=== PATIENT | female | born 1955 | race Caucasian/White ===

== ENCOUNTER 2018-08-26 00:40 | Outpatient (CLI) | payer MEDICAID, SELFPAY ==
--- NOTE | 2018-08-26 09:00 | DI.MAMMO_ITS ---
SYMPTOM/DIAGNOSIS: SCREENING, Z12.31 MAMMOGRAMS: Mammograms were interpreted according to the usual protocol including computer analysis with CAD system, tomosynthesis and C view imaging. Comparison with prior examinations. Breast density B. No masses or microcalcifications are seen. There is nothing to suggest malignancy. IMPRESSION: Negative mammogram. Routine screening is recommended. Category 1 , B. MQSA ASSESSMENT OF FINDINGS: Negative. Category 1. Patient will receive a letter notifying them of these results. BI-RADS category B. There are scattered areas of fibroglandular density.
== END 2018-08-26 01:00 ==
PROVIDERS: PCP Family Medicine; Visit Provider Family Medicine
DX: Z12.31 Encounter for screening mammogram for malignant neoplasm of breast (principal)
CPT/HCPCS: 77063; 77067

== ENCOUNTER 2019-07-01 12:39 | Emergency (ER) | payer OTHER, SELFPAY ==
[2019-07-01 12:44] VITALS: BP 144/79; PULSE 99; RESP 16; TEMP 36.8; O2SAT 97
--- NOTE | 2019-07-01 13:05 | W.ED.GENAD ---
Discharge Plan Disposition Patient Disposition: HOME Condition: Stable Discharge Details Chief Complaint: GenMedical Clinical Impression: Paresthesia Primary Care Provider: Lynsey Moy ED Provider: Tad Cooper Home Meds and New Rx's Prescriptions: No Action levothyroxine 75 mcg tablet 75 mcg PO DAILY Qty: 90 RF: 4 TheraTears 1 EACH dropperette,gel 1 drp OU 4-6x/day RF: 0 Preparation H Maximum Strength 51 GM cream 1 applic RC PRN RF: 0 Discharge Instructions Additional Instructions: Your lab work and exam did not show any concerning findings follow up with your primary care provider within 1-2 weeks if you have weakness, difficulty breathing, chest pain/pressure, vision changes, trouble speaking or feel more ill return to the emergency department Medical Decision Making 63 yo female with hx of hypothyroidism who comes in with chief complaint of feeling off and feeling some sensation of feeling lightheaded. Denies loc, chest pain, sob, weakness, fevers, chills, abdominal pain or n/v. She also notes subjective numbness of her lips and hands. She has an NIH of 0, stable gait, no focal neuro deficits and symptoms do not seem consistent with tia/cva. No chest pain or pressure or sob so doubt acs/pe, no hypoxia/tachycardia or evidence of dvt so doubt PE. I suspect she could have some anxiety related to her son's very recent cancer diagnosis that she brings up herself and states it has affected her significantly. Will check for anemia and electrolyte abnormalities and monitor pt remains stable, ambulating with normal gait unassisted, labs show no significant abnormalities. ASymptomatic now so feel she is safe for d/c and advised f/u with pcp and return precautions given Differential Diagnosis anemia, dehydration, electrolyte abnormalities Lab Data Lab results reviewed: Yes I reviewed the patient's lab results. ECG Data Attestation: I personally reviewed and interpreted this ECG (s) as follows: Prior ECG tracings: not available for review Interpretation: sinus rhythm, rate of 82, pr 152, no acute st t wave ischemic findings HPI General Mode of arrival: ambulatory. Date/Time Provider Initiated Documentation: 07/01/19 12:39. Limitations to Documentation: no limitations. Information obtained by: patient. History of Present Illness 63 year old F presents to the emergency department with the chief complaint of lighteaded, described as moderate, Patient started experiencing this day(s) (1) and it has been intermittent. No relieving factors improve symptom(s), No exacerbating factors reported . Patient did receive the following treatments prior to arrival, none Related Data Home Medications Medication Instructions Recorded Confirmed carboxymethylcellulose sodium 1 drp OU 4-6x/day 04/28/13 07/01/19 [Thera Tears] [id number]-w.pet 1 applic RC PRN 02/11/17 07/01/19 [Preparation H Cream] levothyroxine 75 mcg tablet 75 mcg PO DAILY #90 tab 12/01/18 07/01/19 Previous Rx's Medication Instructions Recorded levothyroxine 75 mcg tablet 75 mcg PO DAILY #90 tab 12/01/18 Allergies Allergy/AdvReac Type Severity Reaction Status Date / Time fentanyl AdvReac Severe SEVERE Verified 07/01/19 12:48 POST OP NAUSEA & VOMITING hydrocortisone AdvReac Severe BURNING Verified 07/01/19 12:48 [From Hydrocortone] midazolam HCl [From Versed] AdvReac Severe SEVERE Verified 07/01/19 12:48 POST OP NAUSEA & VOMITING Anesthetics - Amide Type AdvReac N/V Verified 07/01/19 12:48 Tetracyclines AdvReac Vomiting/Di Verified 07/01/19 12:48 zziness General Stated Complaint: GenMedical LUDMILA: 3 Review of Systems Review of Systems All systems reviewed & are unremarkable except as noted in HPI and below Constitutional Denies chills and Denies fever(s) ENT Denies change in voice Cardiovascular Denies chest pain and Denies dyspnea Respiratory Denies dyspnea Gastrointestinal Denies abdominal pain, Denies nausea and Denies vomiting Allergic/Immunologic Denies urticaria [facility] [place] Medical History (Updated 12/16/18 @ 11:31 by Nirmala Carrera) Cervicalgia (Chronic 01/16/18) Depressive disorder (Resolved) Fall (Resolved 01/16/18) Gastroesophageal reflux disease (Chronic 11/05/13) GERD (gastroesophageal reflux disease) Hearing loss (Chronic) History of recent stressful life event (Resolved 08/09/15) Hyperlipidemia (Chronic) Hypothyroidism Hypothyroidism (Chronic 05/29/11) Irritable colon (Resolved) Low back pain (Chronic 10/28/12) Microscopic hematuria (Resolved 07/30/15) Micturition syncope (Resolved 01/16/18) Midline thoracic back pain (Chronic 01/02/16) Right hip pain (Chronic 02/27/18) Sebaceous cyst of skin of right breast (Resolved 07/07/15) Tubular adenoma of colon (Chronic 11/15/15) Surgical History (Updated 12/16/18 @ 11:31 by Nirmala Carrera) Biopsy of breast (~07/2010) Colonoscopy - MAC (~06/2011) Colonoscopy - MAC (07/24/16) H/O tubal ligation (Resolved) Ligation of fallopian tube S/P breast biopsy (Resolved) Social History (Updated 12/04/18 @ 10:59 by Lynsey Leung) Smoking/Tobacco Use Status: Never Second Hand Exposure: Yes Alcohol Intake: never Drug use: Never Substance use type: does not use Caregiver/Support person: No Household members: none Housing: house Pets and animals: Yes Pets and animals: dog(s) Sexually active: No What is your relationship status?: How often do you talk on the phone with friends or family?: decline to answer How often do you get together with friends or relatives?: decline to answer How often do you attend congregation or scientology services?: decline to answer Do you belong to any clubs or organized social groups?: decline to answer Panel score (0-1 are the most socially isolated patients): 0 What type of physical activity do you participate in: walking and other Details: MOW, SHOVEL SNOW Milena/Buddhism: None Special milena needs: No Exam Const General: no acute distress Orientation: alert HENMT Head: normal to inspection Ears: external ears normal General nose exam: external nose normal Mouth: moist mucous membranes Eyes General: appearance normal, both eyes and all related structures Neck Neck: normal visual inspection Resp Effort & Inspection: normal respiratory effort and able to speak in complete sentences Cardio Rate: regular rate Skin General skin exam: no rashes or lesions noted Neuro General: alert and oriented x3 Extrem General: normal to inspection Psych Mental Status: mental status grossly normal Course Vital Signs Temperature 36.8 C 07/01/19 12:44 Pulse 99 H 07/01/19 12:44 Respiratory Rate 16 07/01/19 12:44 Blood Pressure 144/79 H 07/01/19 12:44 Pulse Oximetry 97 07/01/19 12:44 Temperature 36.8 C 07/01/19 12:44 Temperature Source Skin 07/01/19 12:44 Pulse 99 H 07/01/19 12:44 Respiratory Rate 16 07/01/19 12:44 Respiratory Effort Non-Labored 07/01/19 12:44 Blood Pressure 144/79 H 07/01/19 12:44 Blood Pressure Position Sitting 07/01/19 12:44 Pulse Oximetry 97 07/01/19 12:44 Oxygen Delivery Method Room Air 07/01/19 12:44 Oxygen Flow Rate 0 07/01/19 12:44
[2019-07-01 13:17] VITALS: RESP 16
[2019-07-01 13:17] LABS: Absolute Basophil Count 0.02 k/cumm (0.0-0.2); Absolute Eosinophil Count 0.05 k/cumm (0.0-0.7); Absolute Lymphocyte Count 0.82 k/cumm (1.2-3.4); Absolute Monocyte Count 0.25 k/cumm (0.11-0.7); Absolute Neutrophil Count 1.97 k/cumm (1.2-6.7); Basophils % 0.6; Eosinophils % 1.6; HCT 40.7 % (36.0-46.0); HGB 13.7 g/dL (12.0-15.5); Lymphocytes % 26.4; Mean Corp. HGB Concentration 33.7 g/dL (32.0-36.0); Mean Corpuscular Hemoglobin 30.9 pg (27.0-33.0); Mean Corpuscular Volume 91.9 fL (80-95); Mean Platelet Volume 10.4 fL (8.0-11.0); Neutrophils % 63.4; Platelet Count 257 x1000/uL (130-400); RBC 4.43 m/cumm (4.00-5.20); RBC Distribution Width 13.2 % (11.7-14.6); White Blood Cell Count 3.11 k/cumm (4.4-10.8)
[2019-07-01 14:48] LABS: ALT 12 U/L (12-78); AST 18 U/L (15-37); Albumin 4.1 g/dL (3.4-5.0); Alkaline Phosphatase 70 U/L (46-116); BUN 12 mg/dL (7-18); Bilirubin, Total 0.4 mg/dL (0.2-1.0); Calcium 9.6 mg/dL (8.5-10.1); Chloride 97 mmol/L (98-107); Glucose 105 mg/dL (70-100); NT-proBNP 148 pg/mL; Potassium 3.8 mmol/L (3.5-5.1); Sodium 134 mmol/L (136-145); Total Protein 7.6 g/dL (6.4-8.2)
[2019-07-01 14:50] LABS: Troponin I < 0.05 ng/mL (0.00-0.06)
== END 2019-07-01 15:10 | disposition home or self-care (01) ==
PROVIDERS: Emergency Provider Emergency Medicine; PCP Family Medicine
DX: R20.2 Paresthesia of skin (principal); E03.9 Hypothyroidism, unspecified; Z63.79 Other stressful life events affecting family and household
CPT/HCPCS: 80053; 93005; 99283; 83735; 83880; 84484; 85025; 93010

== ENCOUNTER 2019-07-09 01:32 | Outpatient (CLI) | payer OTHER, SELFPAY ==
--- NOTE | 2019-07-09 07:35 | DI.US_ITS ---
SYMPTOM/DIAGNOSIS: ABNL WT LOSS, R63.4 ABDOMINAL ULTRASOUND: 07/09/19 The visualized liver parenchyma is normal in appearance. There is no evidence of cholelithiasis. The common bile duct is of normal diameter. The pancreas and spleen appear intact. No renal abnormality is seen. The abdominal aorta is of normal diameter. Normal appearance of IVC. CONCLUSION: Normal abdominal ultrasound.
== END 2019-07-09 01:52 ==
PROVIDERS: PCP Family Medicine; Visit Provider Family Medicine
DX: R63.4 Abnormal weight loss (principal)
CPT/HCPCS: 76700

== ENCOUNTER 2019-07-09 02:22 | Outpatient (CLI) | payer OTHER, SELFPAY ==
--- NOTE | 2019-07-14 14:32 | HOLTER_ITS ---
DATE OF DICTATION: July 14, 2019 DATE OF REPORT: July 14, 2019 STUDY INDICATIONS: Palpitations. REQUESTING PROVIDER: Not available. FINDINGS: The patient was monitored for 1 day and 23 hours. Baseline sinus rhythm. Average heart rate 83 bpm, range 59-135 bpm. Rare ectopy. No PVC's. Three PAC's. No pauses greater than 3 seconds. No high-degree heart block. No patient events. FINAL INTERPRETATION: Normal study.
== END 2019-07-09 02:42 ==
PROVIDERS: PCP Family Medicine; Visit Provider Family Medicine
DX: R00.2 Palpitations (principal)
CPT/HCPCS: 93225

== ENCOUNTER 2019-07-13 01:29 | Outpatient (CLI) | payer OTHER, SELFPAY ==
[2019-07-13 11:46] LABS: Hemoglobin A1C 5.4 % (4.5-6.2)
[2019-07-13 11:57] LABS: ALT 19 U/L (12-78); AST 18 U/L (15-37); Albumin 4.3 g/dL (3.4-5.0); Alkaline Phosphatase 74 U/L (46-116); Anion Gap 9.2 mmol/L (3-11); BUN 14 mg/dL (7-18); Bilirubin, Total 0.4 mg/dL (0.2-1.0); CO2 28.8 mmol/L (21.0-32.0); CREATININE 0.89 mg/dL (0.55-1.02); Calcium 9.6 mg/dL (8.5-10.1); Chloride 102 mmol/L (98-107); Glucose 92 mg/dL (70-100); Sodium 140 mmol/L (136-145); TSH (W/Ref FT4) 5.48 uIU/mL (0.36-3.74); Total Protein 7.5 g/dL (6.4-8.2)
[2019-07-13 11:58] LABS: C-Reactive Protein < 0.05 mg/dL (0.0-0.3)
[2019-07-13 12:09] LABS: Calculated LDL 159 mg/dL; Cholesterol 247 mg/dL (50-200); HDL Cholesterol 73 mg/dL (40-60); Triglyceride 75 mg/dL (30-150)
[2019-07-13 12:25] LABS: FREE T4 1.28 ng/dL (0.76-1.46)
[2019-07-13 13:20] LABS: ESR 9 mm/hr (0-30)
[2019-07-14 09:08] LABS: Cyclic Citrullinated Peptide <2.5 U/mL (<5.0)
== END 2019-07-13 01:49 ==
PROVIDERS: PCP Family Medicine
DX: R63.4 Abnormal weight loss (principal); R35.8 Other polyuria; M25.50 Pain in unspecified joint
CPT/HCPCS: 36415; 80053; 80061; 83721; 85652; 86200; 83036; 84439; 84443; 86140

== ENCOUNTER 2019-07-13 16:24 | Outpatient (CLI) | payer OTHER, SELFPAY | END 2019-07-13 16:44 | PROVIDERS: PCP Family Medicine; Visit Provider Family Medicine | DX: R00.2 Palpitations (principal) | CPT/HCPCS: 93226 ==

== ENCOUNTER 2019-09-24 00:56 | Outpatient (CLI) | payer OTHER, SELFPAY ==
--- NOTE | 2019-09-24 10:30 | DI.MAMMO_ITS ---
EXAM: MAMMO SCREENING CLINICAL HISTORY: breast cancer screening,z12.31 TECHNIQUE: Mammograms were interpreted according to the usual protocol including computer analysis w [employer] CAD system, tomosynthesis and C-view imaging. FINDINGS: The breasts are of moderate density with fairly symmetrical distribution of fibroglandular tissue. N o dominant mass or clumped microcalcification is identified in either breast. Current examination is compared with previous examinations including August 2018 and there is question of increased prom inence of areas of asymmetric density located laterally in the right breast on CC view and superiorly in the right breast on MLO view. Additional mammographic views are requested to include CC and MLO spot compression views of the right breast. IMPRESSION: Additional mammographic views of the right breast requested as described above. Breast ultrasound may be indicated as well depending on the results of the additional mammographic views. Ca tegory 0. Breast density, category B. BI-RADS Cat 0 - Assessment Incomplete: Need additional imaging evaluation. Breast Density - Category B - Scattered areas of fibroglandular density.
== END 2019-09-24 01:16 ==
PROVIDERS: PCP Family Medicine
DX: R92.8 Other abnormal and inconclusive findings on diagnostic imaging of breast
CPT/HCPCS: 77063; 77067

== ENCOUNTER 2019-09-30 01:16 | Outpatient (CLI) | payer OTHER, SELFPAY ==
--- NOTE | 2019-09-30 10:00 | DI.US_ITS ---
EXAM: Right mammogram callback and right breast ultrasound CLINICAL HISTORY: QUESTION OF INCREASED PROMINENCE OF AREA ASYMMETRIC DENSITY LOCATED LAT ON RT MITCH ST TECHNIQUE: Ultrasound performed using standard protocol. COMPARISON: Available for comparison FINDINGS: Right mammogram callback No suspicious masses or microcalcifications persist. Breast Density - Category B - Scattered areas of fibroglandular density Right breast ultrasound. The upper outer quadrant of the right breast was evaluated sonographically. No cystic or solid yuval s are seen sonographically. IMPRESSION: 1. No evidence for malignancy. A 6 month follow-up right mammogram is requested for re-evaluation. 2. BI-RADS Cat 3 - 6 month - Probably Benign Finding: Recommend follow-up mammography in 6 months 3. Breast Density - Category B - Scattered areas of fibroglandular density 4. The findings were discussed with the patient on the date of the examination. BI-RADS Cat 3 - 6 month - Probably Benign Finding: Recommend follow-up mammography in 6 months. Breast Density - Category B - Scattered areas of fibroglandular density.
== END 2019-09-30 01:36 ==
PROVIDERS: PCP Family Medicine
DX: Z12.31 Encounter for screening mammogram for malignant neoplasm of breast (principal); R92.8 Other abnormal and inconclusive findings on diagnostic imaging of breast; N64.59 Other signs and symptoms in breast
CPT/HCPCS: 76642; 77063; 77067

== ENCOUNTER 2019-11-10 12:24 | Outpatient (CLI) | payer MEDICARE, SELFPAY ==
--- NOTE | 2019-11-10 12:27 | DI.RAD_ITS ---
EXAM: XR CERVICAL SPINE COMP 4-5V INDICATION: neck pain, CERVICALGIA-M54.2. COMPARISON: 2012 TECHNIQUE: 2D digital imaging was performed. FINDINGS: Comparison is made with 2012. There is moderate narrowing of the C 4-5 and C5-6 disc spaces which al so show endplate osteophyte formation. There are facet degenerative changes. Neural foraminal narro wing is seen on the right at C4-5 and C5-6. There is mild neural foraminal narrowing on the left at C5-6. The airway is unremarkable. IMPRESSION: Degenerative changes at C4-5 and C5-6.
== END 2019-11-10 12:44 ==
PROVIDERS: PCP Family Medicine; Visit Provider Family Medicine
DX: M54.2 Cervicalgia (principal); M50.321 Other cervical disc degeneration at C4-C5 level; M50.322 Other cervical disc degeneration at C5-C6 level
CPT/HCPCS: 72050

== ENCOUNTER 2019-11-11 01:19 | Outpatient (CLI) | payer MEDICARE, SELFPAY ==
--- NOTE | 2019-11-11 12:41 | DI.US_ITS ---
EXAM: US THYROID CLINICAL HISTORY: left thyroid nodule R63.4 ABNORMAL WEIGHT LOSS, E04.1 NODULE TECHNIQUE: Ultrasound performed using standard protocol. FINDINGS: The right lobe measures 4.2 x 0.7 x 0.8 centimeters. There is normal blood flow. No cystic or solid masses identified. The left lobe measures 3 x 0.9 x 1.0 centimeters. There is normal blood flow. There is a complex 1. 9 x 0.8 x 1.0 centimeter vascular nodule in the left lobe of the thyroid gland. No internal echogeni c shadowing foci are identified. In the left neck, there is a hypoechoic 2.3 x 0.5 x 0.8 centimeter nodule adjacent to the carotid ves sels. This may represent a lymph node. IMPRESSION: 1.9 x 0.8 x 1.0 centimeter complex vascular left thyroid mass. Biopsy should be considered for furth er evaluation.
== END 2019-11-11 01:39 ==
PROVIDERS: PCP Family Medicine; Visit Provider Family Medicine
DX: E04.1 Nontoxic single thyroid nodule (principal); E07.89 Other specified disorders of thyroid
CPT/HCPCS: 76536

== ENCOUNTER 2019-12-04 02:55 | Outpatient (CLI) | payer MEDICARE, SELFPAY ==
--- NOTE | 2019-12-04 13:55 | DI.US_ITS ---
APPROVED REPORT EXAM: Comprehensive 2D, Doppler, and color-flow Echocardiogram Patient Location: Out-Patient Microwave Supervisor: Kinsey Reaves RDCS (AE) Rhythm: NSR Indications: SOB palpitations. R00.2, R06.02 Conclusion Left Ventricle : The left ventricle is small. Left ventricular systolic function is normal. The poste rior wall thickness is normal. The septum is normal. There is normal LV segmental wall motion. The le ft ventricular diastolic function is normal. LVEF is estimated to be 60-65%. Right Ventricle : The right ventricle appears normal size. The right ventricular systolic function ap pears normal. Atria : The left atrium size is normal. The right atrium size is normal. Aortic Valve : Aortic valve is trileaflet. Mild aortic regurgitation by color flow doppler. There is no aortic valvular stenosis. Mitral Valve : Mitral valve leaflets are mildly thickened. Trace mitral regurgitation. No evidence of mitral valve stenosis. Tricuspid Valve : The tricuspid valve is normal in structure. Mild tricuspid regurgitation. Great Vessels : The aortic root is normal in size. The aortic root size is normal. The IVC is dilated , but collapses >50%. Estimated RVSP is 26-34 mmHg. There is no prior echocardiogram available for comparison. Wall motion Left Ventricle The left ventricle is small. Left ventricular systolic function is normal. The posterior wall thickne ss is normal. The septum is normal. There is normal LV segmental wall motion. The left ventricular di astolic function is normal. LVEF is estimated to be 60-65%. Right Ventricle The right ventricle appears normal size. The right ventricular systolic function appears normal. Atria The left atrium size is normal. The right atrium size is normal. Aortic Valve Aortic valve is trileaflet. There is no aortic valvular stenosis. Mild aortic regurgitation by color flow doppler. Mitral Valve Mitral valve leaflets are mildly thickened. No evidence of mitral valve stenosis. Trace mitral regurg itation. Tricuspid Valve The tricuspid valve is normal in structure. Mild tricuspid regurgitation. Pulmonic Valve Pulmonic valve is not well visualized. Great Vessels The aortic root is normal in size. The aortic root size is normal. The IVC is dilated, but collapses >50%. Estimated RVSP is 26-34 mmHg. Pericardium No pericardial effusion. 2D Dimensions IVSd 0.80 cm F: 0.6-1.0 LV EDV A2C 47.80 mL PWd 0.80 cm F: 0.6 - 1.0 LV EDV A4C 70.40 mL LVDd 3.65 cm F: 3.8 - 5.2 LA Volume Index A2C 13.61 mL/m2 LVDs 2.35 cm F: 2.2 - 3.5 LA Volume Index A4C 21.59 mL/m2 Aortic Root 2.80 cm F: 2.7 - 3.3 LA Volume Index Biplane 17.86 mL/m2 RA Area A4C 9.71 cm2 LA Area A4C 12.89 cm2 LVOT 2.15 cm (M/F) 1.5-2.5 LA Area A2C 10.67 cm2 LVEF (Teich) 65.26 % EF AP4 72.59 % LVEF (Ratliff's) 73.00 % F: 54 - 74 EF AP2 74.69 % LV Volume 48.70 mL F: 46 - 106 EF BP 73.00 % LV Volume Index 30.62 mL/m2 F: 29 - 61 FS 35.05 % LV Diastology E/A Ratio 1.3 MED E' 0.11 (>0.07 m/s) LV E/e MED 7.25 (<14) LAT E' 0.12 (>0.1 m/s) LV E/e LAT 6.45 (<14) Aortic Valve LVOT Area 3.66 cm2 LVOT Vmax 1.38 m/s LVOT Mean Rao. 0.80 m/s LVOT Peak Gr. 7.6 mmHg LVOT Mean Gr. 3.2 mmHg AoV Area/ BSA (Vmax) 1.97 cm2/m2 LVOT VTI 0.267 m AoV Vmax 1.61 (0.5-1.3 m/s) SOCO Mean Rao. Index 1.63 cm2/m2 AoV Mean Rao. 1.13 m/s AoV Peak Grad 10.4 mmHg AoV Mean Grad 5.8 (<5 mmHg) AoV VTI 0.316 (0.18-0.25 m) AoV Area VTI 3.20 (2.5-4.5 cm2) AoV Area/ BSA (VTI) 2.01 cm/m2 Mitral Valve MV E Max Rao. 0.80 (0.4-1.3 m/s) MV A Velocity 0.60 (0.4-1.3 m/s) E/A Ratio 1.31 MV Decel. Time 188.85 (160-240 msec) MV PHT 54.78 msec MVA PHT 4.00 cm2 Pulmonary Valve PV Peak Velocity 0.98 (0.5-1.5 m/s) Tricuspid Valve TR P. Velocity 2.56 m/s TV Regurg Vmax 2.56 m/s RAP Estimate 8.00 mmHg RVSP 34.18 mmHg TR P. Gradient 26.15 mmHg
== END 2019-12-04 03:15 ==
PROVIDERS: PCP Family Medicine; Visit Provider Family Medicine
DX: R00.2 Palpitations (principal); R06.02 Shortness of breath; I34.8 Other nonrheumatic mitral valve disorders
CPT/HCPCS: 93306

== ENCOUNTER 2020-03-21 01:53 | Outpatient (CLI) | payer MEDICARE, SELFPAY ==
--- NOTE | 2020-03-21 10:26 | DI.MAMMO_ITS ---
EXAM: MG MAMMO DIAGNOSTIC UNI CLINICAL HISTORY: 6 MO F/U TO ABNORMAL MAMMO,r93.8,z09 TECHNIQUE: Mammograms were interpreted according to the usual protocol including computer analysis w [employer] CAD system, tomosynthesis and C-view imaging. FINDINGS: Today's examination of the right breast was obtained to follow previously described area of asymmetri c density of the right breast seen on prior mammogram of September 2019. The area of asymmetric density is less prominent on the current examination. No new mass or clumped microcalcification seen. IMPRESSION: No specific evidence of malignancy at this time. Follow-up mammogram recommended in 6 months, which should be bilateral mammogram to resume routine yearly screening. Categor BI-RADS Cat 3 - 6 month - Probably Benign Finding: Recommend follow-up mammography in 6 month s Breast Density - Category B - Scattered areas of fibroglandular densityy Density
== END 2020-03-21 02:13 ==
PROVIDERS: PCP Family Medicine
DX: Z12.31 Encounter for screening mammogram for malignant neoplasm of breast (principal); R92.8 Other abnormal and inconclusive findings on diagnostic imaging of breast; N64.59 Other signs and symptoms in breast
CPT/HCPCS: 77061; 77065; G0279

== ENCOUNTER 2020-06-02 10:40 | Emergency (ER) | payer MEDICARE, SELFPAY ==
[2020-06-02 10:43] VITALS: BP 146/77; PULSE 98; RESP 16; TEMP 36.7; O2SAT 100
--- NOTE | 2020-06-02 10:45 | DI.RAD_ITS ---
EXAM: XR LUMBAR SPINE COMPLETE CLINICAL HISTORY: Low back pain. TECHNIQUE: 2D digital imaging was performed. COMPARISON: No exams were available for comparison FINDINGS: There are 5 lumbar type vertebral bodies. There is normal alignment. No spondylolysis or spondyloli sthesis is seen. No acute fractures or subluxations are present. Mild degenerative changes are seen in the lumbar spine characterized by disc space narrowing, endplate osteophytes and facet arthropath y. The soft tissues are unremarkable. There is a large amount of stool seen throughout the colon. IMPRESSION: 1. No acute abnormality in the lumbar spine. 2. Mild degenerative changes in the lumbar spine. 3. Constipation. DATA REPOSITORY: RADIATION DOSE DELIVERED:
--- NOTE | 2020-06-02 10:56 | ED.GENADUL_ITS ---
Discharge Plan Disposition Patient Disposition: HOME Condition: Stable Discharge Details Chief Complaint: Nk/Back Pain Clinical Impression: Lumbago without sciatica Primary Care Provider: Lynsey Moy ED Provider: Janay Barnhart Home Meds and New Rx's Prescriptions: New cyclobenzaprine 10 mg tablet 10 mg PO TID PRN (Reason: muscle spasm) Qty: 7 RF: 0 lidocaine 5 % adhesive patch,medicated 1 patch TP DAILY PRN (Reason: muscle spasm) Qty: 15 RF: 0 No Action TheraTears 1 EACH dropperette,gel 1 drp OU 4-6x/day RF: 0 Preparation H Maximum Strength 51 GM cream 1 applic RC PRN RF: 0 levothyroxine 75 mcg tablet 75 mcg PO DAILY Qty: 90 RF: 4 Discharge Instructions Instructions: Low Back Strain (ED) Additional Instructions: Follow up with primary care provider in 3-5 days. Return to ED sooner if any worsening or concerns. Increase oral fluids. Please take Tylenol or Ibuprofen with food every 4-6 hours as needed for pain and swelling. Take medications as prescribed the Flexeril may cause sedation. Do not use more than 1 lidocaine patch a day. Return for any worsening pain, incontinence of bowel or bladder, numbness or tingling around your groin or rectal area any weakness in your legs. Referrals: Lynsey Moy [place], [place] [Primary Care Provider] - Discharge Data Discharge Date/Time-TO BE ENTERED AT DEPARTURE: 06/02/20 12:14 Medical Decision Making 64-year-old female presents to the ER via EMS for lower back spasm which began at around 5 this morning. Patient states that she does have back problems and does get adjusted periodically by Dr. Moy her PCP. She states that it 5 this morning she got out of bed and her right lower back began spasming. She describes the pain as intermittent spasm worse with certain movements and walking. She denies any saddle anesthesia, loss of bowel or bladder control, numbness tingling in her legs, no history of back surgeries. Patient was given IV Tylenol prior to arrival by EMS. This is somewhat and started to improve her symptoms. She denies trauma. 11:00: At this time lumbar x-rays ordered, Flexeril 10 mg p.o. ordered, urinalysis ordered to rule out blood or infection which could be the cause of her back pain. 1137: Urinalysis shows moderate blood, 25-50 RBCs which patient has had at baseline back in 2015. Patient does also endorse that she is always had blood in her urine. Flexeril is beginning to improve symptoms, lidocaine transdermal patch ordered. X-ray results are pending at this time. EXAM: XR LUMBAR SPINE COMPLETE CLINICAL HISTORY: Low back pain. TECHNIQUE: 2D digital imaging was performed. COMPARISON: No exams were available for comparison FINDINGS: There are 5 lumbar type vertebral bodies. There is normal alignment. No spondylolysis or spondylolisthesis is seen. No acute fractures or subluxations are present. Mild degenerative changes are seen in the lumbar spine characterized by disc space narrowing, endplate osteophytes and facet arthropathy. The soft tissues are unremarkable. There is a large amount of stool seen throughout the colon. IMPRESSION: 1. No acute abnormality in the lumbar spine. 2. Mild degenerative changes in the lumbar spine. 3. Constipation. Plan is to have patient follow-up with primary care provider. She has no red flags for additional imaging. No evidence for urinary tract infection. This text was generated using [employer] system, please disregard any oddities of phrase or misspellings. HPI General Mode of arrival: EMS . Date/Time Provider Initiated Documentation: 06/02/20 10:46 . Limitations to Documentation: no limitations . Information obtained by: patient and RN/MD . HPI Narrative: 64-year-old female presents to the ER via EMS for lower back spasm which began at around 5 this morning. Patient states that she does have back problems and does get adjusted periodically by Dr. Moy her PCP. She states that it 5 this morning she got out of bed and her right lower back began spasming. She describes the pain as intermittent spasm worse with certain movements and walking. She denies any saddle anesthesia, loss of bowel or bladder control, numbness tingling in her legs, no history of back surgeries. Patient was given IV Tylenol prior to arrival by EMS. This is somewhat and started to improve her symptoms. Related Data Home Medications Medication Instructions Recorded Confirmed carboxymethylcellulose sodium 1 drp OU 4-6x/day 04/28/13 06/02/20 [Thera Tears] mcubzyoij-qnrhjbgk-wznvw-w.pet 1 applic RC PRN 02/11/17 06/02/20 [Preparation H Cream] levothyroxine 75 mcg tablet 75 mcg PO DAILY #90 tab 02/15/20 06/02/20 cyclobenzaprine 10 mg PO TID PRN #7 tab 06/02/20 lidocaine 1 patch TP DAILY PRN #15 each 06/02/20 Previous Rx's Medication Instructions Recorded levothyroxine 75 mcg tablet 75 mcg PO DAILY #90 tab 02/15/20 cyclobenzaprine 10 mg PO TID PRN #7 tab 06/02/20 lidocaine 1 patch TP DAILY PRN #15 each 06/02/20 Allergies Allergy/AdvReac Type Severity Reaction Status Date / Time fentanyl AdvReac Severe SEVERE Verified 06/02/20 10:46 POST OP NAUSEA & VOMITING hydrocortisone AdvReac Severe BURNING Verified 06/02/20 10:46 [From Hydrocortone] midazolam HCl [From Versed] AdvReac Severe SEVERE Verified 06/02/20 10:46 POST OP NAUSEA & VOMITING Anesthetics - Amide Type AdvReac N/V Verified 06/02/20 10:46 Tetracyclines AdvReac Vomiting/Di Verified 06/02/20 10:46 zziness General Stated Complaint: Nk/Back Pain LUDMILA: 3 Review of Systems Narrative: Constitutional: Negative for weight loss, alert and oriented, well groomed, normal body habitus, appears comfortable. HEENT: Denies trauma, headaches, blurry vision, nasal discharge, sore throat, trouble swallowing. Chest: Denies chest pain, palpitations, irregular rhythm, hypertension. Respiratory: Denies Shortness of breath, cough, hemoptysis. GI: Denies abdominal pain, nausea, vomiting, diarrhea, constipation. : Denies dysuria, hematuria, flank pain, rectal bleeding. No urinary incontinence Musculoskeletal: Reports right lateral paraspinous back pain and spasming. Neuro: Denies dizziness, blurry vision, weakness, syncope, headache or facial numbness. No saddle anesthesia. Hematologic: Denies easy bruising, intolerance to heat or cold, hair loss. [facility] Medical History Cervicalgia (Chronic 01/16/18) Depressive disorder (Resolved) Fall (Resolved 01/16/18) Gastroesophageal reflux disease (Chronic 11/05/13) GERD (gastroesophageal reflux disease) Hearing loss (Chronic) History of recent stressful life event (Resolved 08/09/15) Hyperlipidemia (Chronic) Hypothyroidism Hypothyroidism (Chronic 05/29/11) Irritable colon (Resolved) Low back pain (Chronic 10/28/12) Microscopic hematuria (Resolved 07/30/15) 1996 neg urology eval Micturition syncope (Resolved 01/16/18) Midline thoracic back pain (Chronic 01/02/16) Right hip pain (Chronic 02/27/18) Sebaceous cyst of skin of right breast (Resolved 07/07/15) infected Tubular adenoma of colon (Chronic 11/15/15) Surgical History Biopsy of breast (~07/2010) Colonoscopy - MAC (~06/2011) Colonoscopy - MAC (07/24/16) H/O tubal ligation (Resolved) bilateral Ligation of fallopian tube S/P breast biopsy (Resolved) neg Family History Mother No problems noted. Father Chronic obstructive lung disease Sister Personal history of malignant neoplasm breast Hypothyroid Sister Personal history of malignant neoplasm Brother Essential hypertension Hypothyroid Brother , suicide at age 38. No problems noted. Brother No problems noted. Grandfather No problems noted. Grandfather No problems noted. Grandmother Personal history of malignant neoplasm colon and throat Grandmother Personal history of malignant neoplasm breast Brother No problems noted. Son No problems noted. Daughter No problems noted. Social History Smoking/Tobacco Use Status: Never Second Hand Exposure: Yes Alcohol Intake: never Drug use: Never Substance use type: does not use Caregiver/Support person: No Household members: none Housing: house Pets and animals: Yes Pets and animals: dog(s) Sexually active: No What is your relationship status?: How often do you talk on the phone with friends or family?: decline to answer How often do you get together with friends or relatives?: decline to answer How often do you attend congregation or oriental orthodox services?: decline to answer Do you belong to any clubs or organized social groups?: decline to answer Panel score (0-1 are the most socially isolated patients): 0 What type of physical activity do you participate in: walking and other Details: MOW, SHOVEL SNOW Milena/Restorationism: None Special milena needs: No Exam Narrative Exam Narrative: Constitutional: Alert and oriented x3. Appears stated age. Normal body habitus. Head: Normocephalic, no trauma. Eyes: Pupils PERRLA, Red reflex noted, EOM's intact. Eyelids symmetrical without lesions, discharge, or swelling. ENT: Bilateral TM's WNL, External ear normal to inspection, no mastoid TTP, swelling, or erythema, Nasal turbinates WNL, no nasal discharge. Normal dentition, Posterior pharynx WNL, no exudate. Chest: RRR, Normal S1, S2, distal pulses intact. Resp: Lungs clear to auscultation bilaterally, no wheezes, rales, or rhonchi. Musculoskeletal: Normal gait, 5/5 strength to all four extremities. Negative straight leg test, no midline L-spine tenderness she does have some paraspinous right lower tenderness with palpation. Skin: No suspicious rashes or lesions. Capillary refill less than 2 sec. Neurologic: Cranial nerves II-XII intact. Alert and oriented x 3. DTR's intact. Intact dorsal flexion and pedal flexion. Hematologic/Lymphatic: No ecchymosis, no lymphadenopathy. Course Vital Signs Vital signs: Vital Signs Temperature 36.7 C 06/02/20 10:43 Pulse 98 H 06/02/20 10:43 Respiratory Rate 16 06/02/20 10:43 Blood Pressure 146/77 H 06/02/20 10:43 Pulse Oximetry 100 06/02/20 10:43 Temperature 36.7 C 06/02/20 10:43 Temperature Source Skin 06/02/20 10:43 Pulse 98 H 06/02/20 10:43 Respiratory Rate 16 06/02/20 10:43 Respiratory Effort Non-Labored 06/02/20 10:43 Blood Pressure 146/77 H 06/02/20 10:43 Blood Pressure Position Sitting 06/02/20 10:43 Pulse Oximetry 100 06/02/20 10:43 Pain Level 10 06/02/20 10:50
[2020-06-02] MEDS: Cyclobenzaprine 10 MG TAB PO (10:59)
[2020-06-02 11:15] LABS: Bilirubin Negative (Negative); Blood Moderate (Negative); Clarity Clear (Clear); Glucose Negative (Negative); Ketones Negative (Negative); Leukocyte Esterase Negative (Negative); Nitrite Negative (Negative); Specific Gravity 1.015 (1.005-1.025); Urobilinogen 0.2 EU/dL (Up TO 0.2)
[2020-06-02 11:25] LABS: RBC 20-50 HPF (0-2); WBC Negative HPF (0-5)
[2020-06-02 11:26] LABS: Bacteria Negative HPF (Negative); C & S Indicated? No; Casts Negative LPF (Negative); Crystals Negative HPF (Negative); Epithelial Cells Rare HPF (Negative); Mucus Negative (Negative)
[2020-06-02] MEDS: Lidocaine 5% Patch 1 PATCH TP (11:37)
[2020-06-02 12:05] VITALS: BP 125/82; PULSE 86; RESP 16; TEMP 36.7; O2SAT 96
== END 2020-06-02 12:14 | disposition home or self-care (01) ==
PROVIDERS: Emergency Provider Registered Nurse Emergency; PCP Family Medicine
DX: M54.5 Low back pain (principal)
CPT/HCPCS: 99284; 72110; 81003; 81015

== ENCOUNTER 2020-06-09 00:16 | Outpatient (CLI) | payer MEDICARE, SELFPAY ==
--- NOTE | 2020-06-09 | DI.US_ITS ---
EXAM: US THYROID CLINICAL HISTORY: THYROID NODULE, E04.1. TECHNIQUE: Ultrasound thyroid performed using standard protocol. COMPARISON: No exams were available for comparison FINDINGS: The overall thyroid echotexture is normal. There are a few tiny nodules in the right lobe measuring 2 millimeters. The right lobe measures 4.0 x 0.8 x 0.8 cm. The left lobe measures 3.9 x 0.8 x 1.1 c m. There is a smoothly marginated mixed cystic and hypoechoic solid nodule in the lower pole of the left lobe measuring 1.7 x 0.8 x 1.1 cm. It shows a macrocalcification. IMPRESSION: 1.7 centimeter complex nodule at the lower pole the left lobe corresponds to a TI-RADS category 4. F NA is recommended for further evaluation. DATA REPOSITORY:
== END 2020-06-09 00:36 ==
PROVIDERS: PCP Family Medicine; Visit Provider Otolaryngology
DX: E04.1 Nontoxic single thyroid nodule (principal); E07.89 Other specified disorders of thyroid
CPT/HCPCS: 76536

== ENCOUNTER 2020-07-20 03:05 | Outpatient (CLI) | payer MEDICARE, SELFPAY ==
[2020-07-20 12:44] LABS: ALT 20 U/L (14-59); AST 21 U/L (15-37); Albumin 4.3 g/dL (3.4-5.0); Alkaline Phosphatase 73 U/L (46-116); Anion Gap 9.1 mmol/L (3-11); BUN 14 mg/dL (7-18); Bilirubin, Total 0.5 mg/dL (0.2-1.0); CO2 28.9 mmol/L (21.0-32.0); CREATININE 0.78 mg/dL (0.55-1.02); Calcium 9.7 mg/dL (8.5-10.1); Calculated LDL 174 mg/dL (<100); Chloride 101 mmol/L (98-107); Cholesterol 257 mg/dL (<200); Glucose 99 mg/dL (74-106); HDL Cholesterol 72 mg/dL (40-60); Potassium 4.4 mmol/L (3.5-5.1); Sodium 139 mmol/L (136-145); TSH (W/Ref FT4) 3.07 uIU/mL (0.36-3.74); Total Protein 7.5 g/dL (6.4-8.2); Triglyceride 59 mg/dL (<150)
== END 2020-07-20 03:25 ==
PROVIDERS: PCP Family Medicine; Visit Provider Family Medicine
DX: E04.1 Nontoxic single thyroid nodule (principal); E78.5 Hyperlipidemia, unspecified
CPT/HCPCS: 36415; 80053; 80061; 84443

== ENCOUNTER 2020-07-25 15:20 | Outpatient (REF) | payer MEDICARE, SELFPAY ==
--- NOTE | 2020-07-25 14:45 | PAPFT_PTH ---
PATIENT: Socorro Selby LOC: [facility] U#:[id number] AGE/SX: 64/F ROOM: RE07/25/[address]: Lynsey Moy MD, [place] : 1955 BED: DIS: 07/25/2020 SPEC #: [id number] RECD: 07/26/20 12:49 STATUS: LIZETTE REQ #: [id number] DHEERAJ: 07/25/20 14:[address]: Lynsey Moy DEPT: [facility] Cytology RECD BY: Olya Gonzales Tissues: 1 - CX/ENDOCX FOR PAP SMEARS Procedures: PAP THIN PREP/UVM Screening HPV DNA PROBE Comments: [id number]
== END 2020-07-25 15:40 ==
LOC: LBN 15:20
PROVIDERS: PCP Family Medicine; Visit Provider Family Medicine
DX: Z12.4 Encounter for screening for malignant neoplasm of cervix (principal); Z11.51 Encounter for screening for human papillomavirus (HPV)
CPT/HCPCS: 88142; 87624

== ENCOUNTER 2020-09-22 20:22 | Outpatient (CLI) | payer MEDICARE, SELFPAY ==
--- NOTE | 2020-09-22 08:45 | DI.RAD_ITS ---
EXAM: XR FOOT LT COMPLETE CLINICAL HISTORY: left foot pain, M79.672. TECHNIQUE: 2D digital imaging was performed. COMPARISON: No exams were available for comparison FINDINGS: BONES: No acute fracture is present. No bony destructive lesion is seen. Bones appear osteopenic. There is a tiny plantar calcaneal spur. JOINTS: No dislocation present. No significant periarticular spurring. SOFT TISSUE: Normal. IMPRESSION: Unremarkable radiographs of the left foot. DATA REPOSITORY: RADIATION DOSE DELIVERED:
== END 2020-09-22 20:42 ==
PROVIDERS: PCP Family Medicine; Visit Provider Nurse Practitioner Family
DX: M79.672 Pain in left foot (principal)
CPT/HCPCS: 73630

== ENCOUNTER 2020-10-07 01:38 | Outpatient (CLI) | payer MEDICARE, SELFPAY ==
[2020-10-07 12:23] LABS: Abs Immature Grans 0.01 10^3/uL (0.0-0.06); Absolute Basophil Count 0.03 10^3/uL (0.0-0.2); Absolute Eosinophil Count 0.03 10^3/uL (0.0-0.7); Absolute Lymphocyte Count 0.79 10^3/uL (1.2-3.4); Absolute Neutrophil Count 2.43 10^3/uL (1.2-6.7); Basophils % 0.8; Eosinophils % 0.8; HGB 14.7 g/dL (11.2-15.7); Immature Grans % 0.3; Lymphocytes % 21.4; MCH 31.1 pg (27.0-33.0); MCHC 32.7 % (32.0-36.0); MCV 95.3 fL (80-95); MPV 10.1 fL (8.0-11.0); Monocytes % 10.8; Neutrophils % 65.9; Nucleated RBC 0 %; Platelet Count 309 10^3/uL (130-400); RBC 4.72 10^6/uL (3.93-5.22); RDW 13.1 % (11.7-14.6); RDW-SD 46.4 fL; WBC 3.69 10^3/uL (4.4-10.8)
[2020-10-07 13:01] LABS: ALT 28 U/L (14-59); AST 24 U/L (15-37); Albumin 4.2 g/dL (3.4-5.0); Alkaline Phosphatase 82 U/L (46-116); Anion Gap 10.1 mmol/L (3-11); BUN 24 mg/dL (7-18); Bilirubin, Total 0.4 mg/dL (0.2-1.0); CO2 28.9 mmol/L (21.0-32.0); CREATININE 0.76 mg/dL (0.55-1.02); Calcium 9.1 mg/dL (8.5-10.1); Chloride 100 mmol/L (98-107); Glucose 112 mg/dL (74-106); Magnesium 2.1 mg/dL (1.8-2.4); Potassium 4.2 mmol/L (3.5-5.1); Sodium 139 mmol/L (136-145); TSH (W/Ref FT4) 5.65 uIU/mL (0.36-3.74); Total Protein 7.4 g/dL (6.4-8.2)
[2020-10-07 13:05] LABS: Hemoglobin A1C 5.6 % (<5.7)
[2020-10-07 13:33] LABS: FREE T4 1.26 ng/dL (0.76-1.46)
== END 2020-10-07 01:58 ==
PROVIDERS: PCP Family Medicine; Visit Provider Family Medicine
DX: I10 Essential (primary) hypertension (principal); E03.9 Hypothyroidism, unspecified; R73.09 Other abnormal glucose; E78.5 Hyperlipidemia, unspecified; R42 Dizziness and giddiness; R55 Syncope and collapse
CPT/HCPCS: 36415; 80053; 83036; 83735; 84439; 84443; 85025

== ENCOUNTER 2020-10-11 00:50 | Outpatient (CLI) | payer MEDICARE, SELFPAY ==
--- NOTE | 2020-10-11 07:15 | DI.US_ITS ---
EXAM: US CAROTID CLINICAL HISTORY: dizziness,syncope,r55,r42. TECHNIQUE: Ultrasound carotids performed using grayscale, color-flow, and spectral Doppler imaging. COMPARISON: No exams were available for comparison FINDINGS: RIGHT CAROTID ARTERY: Plaque: Minimal. Velocity elevation: None. LEFT CAROTID ARTERY: Plaque: Minimal. Velocity elevation: None. VERTEBRAL ARTERIES: Antegrade flow. Measurements: R Bulb: 64 PS/9 ED R CCA: 82 PS/14 ED R ECA: 90 PS/10 ED R ICA Prox: 51 PS/16 ED R ICA Mid: 96 PS/26 ED R ICA Distal: 93 PS/27 ED R Vert: 54 PS/8 ED R SVR: 1.2 R DVR: 1.9 L Bulb: 86 PS/16 ED L CCA: 104 PS/22 ED L ECA: 84 PS/10 ED L ICA Prox:75 PS/20 ED L ICA Mid: 78PS/19 ED L ICA Distal: 91 PS/28 ED L Vert: 62 PS/16 ED L SVR: 0.9 L DVR: 1.3 IMPRESSION: No evidence for hemodynamically significant carotid stenosis. Criteria for Carotid Stenosis: Normal: ICA PSV <125 cm/s no plaque or intimal thickening is visible. <50% stenosis: ICA PSV <125 cm/s and plaque or intimal thickening is visible. 50-69% stenosis: ICA PSV is 125-250 cm/s and plaque is visible. >70% stenosis to near occlusion: ICA PSV >250 cm/s with visible plaque and luminal narrowing. DATA REPOSITORY:
== END 2020-10-11 01:10 ==
PROVIDERS: PCP Family Medicine; Visit Provider Family Medicine
DX: R55 Syncope and collapse (principal); R42 Dizziness and giddiness
CPT/HCPCS: 93880

== ENCOUNTER → 2021-05-29 09:45 | Outpatient (BNVA) | payer MEDICARE, SELFPAY | PROVIDERS: PCP Family Medicine; Referring Provider Family Medicine; Visit Provider Psychiatry & Neurology Neurology | DX: R42 Dizziness and giddiness (principal); R26.89 Other abnormalities of gait and mobility; R20.0 Anesthesia of skin; R20.2 Paresthesia of skin | CPT/HCPCS: 99215; G2212 ==

== ENCOUNTER 2021-06-11 11:06 | Emergency (ER) | payer MEDICARE, SELFPAY ==
[2021-06-11 11:08] VITALS: BP 165/93; PULSE 105; RESP 16; TEMP 36.3; O2SAT 97
[2021-06-11 11:15] LABS: Bilirubin Negative (Negative); Blood Large (Negative); Glucose Negative (Negative); Ketones Negative (Negative); Leukocyte Esterase Moderate (Negative); Nitrite Negative (Negative); Urobilinogen 0.2 EU/dL (Up TO 0.2); pH 6.5 (5-8)
[2021-06-11 11:21] LABS: Clarity Sl Cloudy (Clear)
[2021-06-11 11:23] LABS: Bacteria Few HPF (Negative); C & S Indicated? Yes; Casts Negative LPF (Negative); Crystals Negative HPF (Negative); Epithelial Cells Few HPF (Negative); Mucus Negative (Negative); WBC 20-50 HPF (0-5)
--- NOTE | 2021-06-11 11:38 | W.ED.GENAD ---
Discharge Plan Disposition Patient Disposition: HOME Condition: Stable Discharge Details Clinical Impression: Acute UTI, Elevated blood pressure reading Primary Care Provider: Lynsey Moy ED Provider: Stephen Perez Home Meds and New Rx's Prescriptions: New phenazopyridine [Pyridium] 100 mg tablet 100 mg PO TID PRNQty: 6 RF: 0 Continued acetaminophen [Tylenol] 325 mg tablet 325 mg PO Q4H PRNRF: 0 meclizine 12.5 mg tablet 12.5 mg PO TID PRN (Reason: dizziness) Qty: 30 RF: 4 TheraTears 1 EACH dropperette,gel 1 drp OU 4-6x/day RF: 0 Preparation H Maximum Strength 51 GM cream 1 applic RC PRN RF: 0 levothyroxine 75 mcg tablet 75 mcg PO DAILY Qty: 90 RF: 4 lidocaine 5 % adhesive patch,medicated 1 patch TP DAILY PRN (Reason: muscle spasm) Qty: 15 RF: 0 Discharge Instructions Instructions: Urinary Tract Infection in Women (ED) Additional Instructions: Please take full course of antibiotic as prescribed. Your next dose is this evening. Please monitor your blood pressure over the next 1 week. Please contact your primary care physician to arrange follow-up. Be sure to discuss your blood pressure and intermittent vertigo. Return to the ER for any worsening or new concerning symptoms. Referrals: Lynsey Moy MD, [place] [Primary Care Provider] - Discharge Data Discharge Date/Time-TO BE ENTERED AT DEPARTURE: 06/11/21 11:50 Medical Decision Making 55-year-old female here with symptoms consistent with UTI. Patient is not septic appearing with no signs of pyelonephritis Urinalysis reviewed and consistent with UTI. Will initiate treatment with antibiotic. Urine culture sent. HPI General Mode of arrival: ambulatory. Date/Time Provider Initiated Documentation: 06/11/21 11:13. Limitations to Documentation: no limitations. Information obtained by: patient. HPI Narrative: 65-year-old female presents with chief complaint of bladder infection. Patient notes she woke up this morning with dysuria. To light burning. Discomfort is moderate to severe. No associated hematuria. No flank pain. No nausea or vomiting. Related Data Home Medications Medication Instructions Recorded Confirmed TheraTears 1 drp OU 4-6x/day 04/28/13 06/16/21 Preparation H Maximum Strength 1 applic RC PRN 02/11/17 06/16/21 lidocaine 1 patch TP DAILY PRN #15 each 06/02/20 06/16/21 acetaminophen 325 mg tablet 325 mg PO Q4H PRN tab 12/13/20 06/16/21 meclizine 12.5 mg tablet 12.5 mg PO TID PRN #30 tab 02/02/21 06/16/21 levothyroxine 75 mcg tablet 75 mcg PO DAILY #90 tab 05/15/21 06/16/21 phenazopyridine [Pyridium] 100 mg PO TID PRN #6 tab 06/11/21 06/16/21 Previous Rx's Medication Instructions Recorded lidocaine 1 patch TP DAILY PRN #15 each 06/02/20 meclizine 12.5 mg tablet 12.5 mg PO TID PRN #30 tab 02/02/21 levothyroxine 75 mcg tablet 75 mcg PO DAILY #90 tab 05/15/21 phenazopyridine [Pyridium] 100 mg PO TID PRN #6 tab 06/11/21 Allergies Allergy/AdvReac Type Severity Reaction Status Date / Time fentanyl AdvReac Severe SEVERE Verified 06/16/21 08:25 POST OP NAUSEA & VOMITING hydrocortisone AdvReac Severe BURNING Verified 06/16/21 08:25 [From Hydrocortone] midazolam HCl [From Versed] AdvReac Severe SEVERE Verified 06/16/21 08:25 POST OP NAUSEA & VOMITING Anesthetics - Amide Type - AdvReac N/V Verified 06/16/21 08:25 Select A [Anesthetics - Amide Type] Tetracyclines AdvReac Vomiting/Di Verified 06/11/21 11:14 zziness General Stated Complaint: Urinary LUDMILA: 4 Review of Systems Constitutional Constitutional: Denies fever(s) Gastrointestinal Gastrointestinal: Reports as per HPI Genitourinary Genitourinary: Reports as per HPI [facility] Medical History Cervicalgia (01/16/18) Depressive disorder Fall (01/16/18) Gastroesophageal reflux disease (11/05/13) GERD (gastroesophageal reflux disease) Hearing loss History of recent stressful life event (08/09/15) Hyperlipidemia Hypothyroidism Hypothyroidism (05/29/11) Intermittent palpitations Irritable colon Low back pain (10/28/12) Microscopic hematuria (07/30/15) 1996 neg urology eval Micturition syncope (01/16/18) Midline thoracic back pain (01/02/16) Right hip pain (02/27/18) Sebaceous cyst of skin of right breast (07/07/15) infected Thyroid nodule Tubular adenoma of colon (11/15/15) Weight loss, abnormal Surgical History Biopsy of breast (~07/2010) Colonoscopy - MAC (~06/2011) Colonoscopy - MAC (07/24/16) H/O tubal ligation bilateral Ligation of fallopian tube S/P breast biopsy neg Family History Father , 65 Chronic obstructive lung disease Sister Personal history of malignant neoplasm breast Hypothyroid Sister Personal history of malignant neoplasm Brother Essential hypertension Hypothyroid Maternal Grandmother Personal history of malignant neoplasm colon and throat Paternal Grandmother Personal history of malignant neoplasm breast Son , 43 Cancer Daughter No problems noted. Mother No problems noted. Maternal Grandfather No problems noted. Paternal Grandfather No problems noted. Social History Smoking/Tobacco Use Status: Never Second Hand Exposure: Yes Smoking risk assessment performed?: Yes Alcohol Intake: never Drug use: Never Substance use type: does not use Caregiver/Support person: No Household members: none Housing: house Communication Needs: Hard of Hearing and Corrective Lenses Pets and animals: Yes Pets and animals: dog(s) Sexually active: No Do you think of yourself as: straight/heterosexual What is your relationship status?: How often do you talk on the phone with friends or family?: decline to answer How often do you get together with friends or relatives?: decline to answer How often do you attend congregation or taoist services?: decline to answer Do you belong to any clubs or organized social groups?: decline to answer Panel score (0-1 are the most socially isolated patients): 0 What type of physical activity do you participate in: walking and other Details: MOW, SHOVEL SNOW Duration: 45-60 minutes/day Frequency: 5-6 times per week Milena/Jainism: Confucianist Special milena needs: No Seatbelt use: always Exam Const General: cooperative and no acute distress HENMT Mouth: moist mucous membranes Resp Auscultation: clear to auscultation bilaterally, no rales, no rhonchi and no wheezes Cardio Rate: regular rate and not tachycardic Rhythm: regular rhythm GI Palpation: soft, not firm, no guarding, no masses, not rigid and nontender Neuro General: patient alert, patient awake, patient oriented x3 and tone normal Course Vital Signs Vital signs: Vital Signs Temperature 36.3 C L 06/11/21 11:08 Pulse 105 H 06/11/21 11:08 Respiratory Rate 16 06/11/21 11:08 Blood Pressure 165/93 H 06/11/21 11:08 Pulse Oximetry 97 06/11/21 11:08 Temperature 36.3 C L 06/11/21 11:08 Temperature Source Skin 06/11/21 11:08 Pulse 105 H 06/11/21 11:08 Respiratory Rate 16 06/11/21 11:08 Respiratory Effort Non-Labored 06/11/21 11:08 Blood Pressure 165/93 H 06/11/21 11:08 Blood Pressure Position Sitting 06/11/21 11:08 Pulse Oximetry 97 06/11/21 11:08 Oxygen Delivery Method Room Air 06/11/21 11:08 Oxygen Flow Rate 0 06/11/21 11:08 Pain Level 10 06/11/21 11:08 Lab/Test Results Lab/Test Results: 06/11/21 11:08 Urine - Reflex from Ua Urine Culture - Pending Laboratory Tests Range/Units 06/11/21 11:08 Urine Color (Yellow) Straw Urine Clarity (Clear) Sl Cloudy Urine pH (5-8) 6.5 Ur Specific [place] (1.005-1.025) 1.010 Urine Protein (Negative) mg/dL Negative Urine Ketones (Negative) mg/dL Negative Urine Blood (Negative) Large H Urine Nitrite (Negative) Negative Urine Bilirubin (Negative) Negative Urine Urobilinogen (Up TO 0.2) EU/dL 0.2 Ur Leukocyte Esterase (Negative) Moderate H Urine RBC (0-2) HPF 10-20 H Urine WBC (0-5) HPF 20-50 H Ur Epithelial Cells (Negative) HPF Few Urine Crystals (Negative) HPF Negative Urine Bacteria (Negative) HPF Few Urine Casts (Negative) LPF Negative Urine Mucus (Negative) Negative Ur Culture Indicated? Yes Urine Glucose (Negative) mg/dL Negative
[2021-06-11] MEDS: Cephalexin 500 MG CAP PO (11:39)
[2021-06-11] MEDS: Phenazopyridine 100 MG TAB PO (11:39)
--- NOTE | 2021-06-11 11:39 | NUR.NOTE ---
Nursing Note: Referral faxed to [facility] for follow up the end of this week for UTI, depressed, elevated B/P, medication questions. Prudence Grimm
== END 2021-06-11 11:50 | disposition home or self-care (01) ==
PROVIDERS: Emergency Provider Student in an Organized Health Care Education/Training Program; PCP Family Medicine
DX: N39.0 Urinary tract infection, site not specified (principal); R03.0 Elevated blood-pressure reading, without diagnosis of hypertension; B96.20 Unspecified Escherichia coli [E. coli] as the cause of diseases classified elsewhere
CPT/HCPCS: 87077; 99283; 81003; 81015; 87086; 87186

== ENCOUNTER 2021-07-11 01:26 | Outpatient (CLI) | payer MEDICARE, SELFPAY ==
--- NOTE | 2021-07-11 07:45 | DI.MAMMO_ITS ---
Exam(s) MAMMO SCREENING EXAM: MAMMO SCREENING CLINICAL HISTORY: screening,Z12.39 TECHNIQUE: Mammograms were interpreted according to the usual protocol including computer analysis w [employer] CAD system, tomosynthesis and C-view imaging. COMPARISON: 2010 through 2019 FINDINGS: The breasts are composed of scattered fibroglandular densities, Breast Density category B. No suspicious masses or suspicious microcalcifications are seen. No skin thickening or abnormal axillary lymph nodes are seen. There has been no significant change from prior exams. IMPRESSION: BI-RADS Category 1, Negative mammogram Yearly screening mammography is recommended. Breast Density - Category B, scattered fibroglandular densities. A negative radiographic report should not delay biopsy if a dominant or clinically suspicious mass is present. Up to ten percent of cancers are not identified on mammography. A negative report may reinforce clinical impression. Adenosis and dense breasts may obscure an underlying neoplasm. False positive reports average 6 to 10%. Patient will receive a letter notifying them of these results.
== END 2021-07-11 01:46 ==
PROVIDERS: PCP Family Medicine; Visit Provider Family Medicine
DX: Z12.31 Encounter for screening mammogram for malignant neoplasm of breast (principal); R92.8 Other abnormal and inconclusive findings on diagnostic imaging of breast; E04.1 Nontoxic single thyroid nodule
CPT/HCPCS: 77063; 77067

== ENCOUNTER 2021-07-11 13:20 | Outpatient (CLI) | payer MEDICARE, SELFPAY ==
--- NOTE | 2021-07-11 | DI.US_ITS ---
Exam(s) US THYROID EXAM: US THYROID CLINICAL HISTORY: THYROID NODULE,E04.1. TECHNIQUE: Ultrasound thyroid performed using standard protocol. COMPARISON: US US THYROID from 06/09/2020 US US THYROID from 06/09/2020 FINDINGS: ISTHMUS: 2 mm RIGHT LOBE: Size: 4.3 x 1.2 x 0.9 cm Echogenicity: Heterogeneous Vascularity: Normal. Nodules: Several tiny colloid nodules. LEFT LOBE: Size: 4.3 x 1.3 x 1.2 cm Echogenicity: Heterogeneous Vascularity: Normal. Nodules: 1.7 x 0.9 x 1.2 centimeter mixed cystic and solid nodule with macrocalcification and punctat e echogenic foci.. A 6 millimeter hypoechoic nodule is now seen near the upper pole. OTHER FINDINGS: No adenopathy is identified. IMPRESSION: Stable size and appearance of left thyroid nodule. TI-RADS 4. DATA REPOSITORY:
== END 2021-07-11 13:40 ==
PROVIDERS: PCP Family Medicine; Visit Provider Otolaryngology
DX: E04.1 Nontoxic single thyroid nodule (principal)
CPT/HCPCS: 76536

== ENCOUNTER 2021-09-01 19:01 | Outpatient (CLI) | payer MEDICARE, SELFPAY ==
--- NOTE | 2021-09-01 19:00 | RT.EKG_ITS ---
APPROVED REPORT Exam: Resting ECG Reason for Exam: Dizziness Patient Location: O HR:98 bpm ECG Measurements Heart Rate 98 AXIS WI 146 P 76 QRSd 98 QRS 116 QT 359 T 77 QTc 457 Conclusion Sinus rhythm...normal P axis, V-rate 60- 99 Atrial premature complex...SV complex w/ short R-R interval Right ventricular hypertrophy...prominent R or R' w/ RAD or ENRIQUE
== END 2021-09-01 19:02 | disposition home or self-care (01) ==
LOC: DI.CM 19:01
PROVIDERS: PCP Family Medicine; Visit Provider Nurse Practitioner Family
DX: R42 Dizziness and giddiness (principal)
CPT/HCPCS: 93010

== ENCOUNTER 2021-09-28 01:53 | Outpatient (CLI) | payer MEDICARE, SELFPAY ==
[2021-09-28 12:42] LABS: TSH (W/Ref FT4) 3.08 uIU/mL (0.36-3.74)
== END 2021-09-28 01:54 | disposition home or self-care (01) ==
LOC: LOS 01:54
PROVIDERS: PCP Family Medicine; Visit Provider Family Medicine
DX: R52 Pain, unspecified (principal)
CPT/HCPCS: 36415; 84443

== ENCOUNTER → 2022-06-26 18:06 | Outpatient (CLI) | payer MEDICARE, SELFPAY ==
--- NOTE | 2022-06-26 16:30 | DI.RAD_ITS ---
Exam(s) XR THORACIC SPINE COMPLETE EXAM: XR THORACIC SPINE COMPLETE CLINICAL HISTORY: PAIN IN THORACIC SPINE-M54.6, LOW BACK PAIN-M54.5. TECHNIQUE: 2D digital imaging was performed of the thoracic spine. Three views were obtained. AP, swimmer's and lateral views were obtained. COMPARISON: No exams were available for comparison FINDINGS: BONES: There is no fracture or destructive lesion. Small endplate osteophytes are present throughout the thoracic spine. DISKS:Alignment is within normal limits. Interverebral disc spaces are maintained. SOFT TISSUE: Visualized lungs are clear. IMPRESSION: Mild degenerative changes in the lumbar spine. DATA REPOSITORY: RADIATION DOSE DELIVERED:
--- NOTE | 2022-06-26 16:30 | DI.RAD_ITS ---
Exam(s) XR LUMBAR SPINE COMPLETE EXAM: XR LUMBAR SPINE COMPLETE CLINICAL HISTORY: LOW BACK PAIN-M54.5, PAIN IN THORACIC SPINE-M54.6. TECHNIQUE: 2D digital imaging was performed of the lumbar spine. Five images were obtained. AP, la teral, right oblique, left oblique and L5-S1 spot views were obtained. COMPARISON: CR XR LUMBAR SPINE COMPLETE from 06/02/2020 FINDINGS: BONES: No fracture or destructive lesion. Small endplate osteophytes are seen at L3-L4 and L4-L5. No facet hypertrophy identified. DISKS: There is mild disc space narrowing at L4-L5. ALIGNMENT: Lumbar spinal alignment is within normal limits. No spondylolysis or spondylolisthesis. SOFT TISSUE: There is a moderate amount of stool in the colon. IMPRESSION: Mild degenerative changes in the lumbar spine. DATA REPOSITORY: RADIATION DOSE DELIVERED:
== END ==
PROVIDERS: PCP Family Medicine; Visit Provider Physician Assistant
DX: M54.59 Other low back pain (principal); M51.36 Other intervertebral disc degeneration, lumbar region
CPT/HCPCS: 72072; 72110

== ENCOUNTER 2022-07-05 10:36 | Outpatient (CLI) | payer MEDICARE, SELFPAY ==
[2022-07-05 11:09] LABS: HCT 41.3 % (36.0-46.0); HGB 14.2 g/dL (11.2-15.7); MCH 31.3 pg (27.0-33.0); MCHC 34.4 % (32.0-36.0); MCV 91 fL (80-95); Platelet Count 249 10^3/uL (130-400); RBC 4.53 10^6/uL (3.93-5.22); RDW 12.5 % (11.7-14.6); RDW-SD 41.6 fL
[2022-07-05 11:44] LABS: ALT 19 U/L (14-59); AST 21 U/L (15-37); Albumin 3.9 g/dL (3.4-5.0); Alkaline Phosphatase 71 U/L (46-116); Anion Gap 5.1 mmol/L (3-11); BUN 20 mg/dL (7-18); Bilirubin, Total 0.3 mg/dL (0.2-1.0); CO2 28.9 mmol/L (21.0-32.0); CREATININE 0.8 mg/dL (0.55-1.02); Calcium 8.9 mg/dL (8.5-10.1); Chloride 96 mmol/L (98-107); Glucose 117 mg/dL (74-106); Potassium 4.4 mmol/L (3.5-5.1); Sodium 130 mmol/L (136-145); TSH (W/Ref FT4) 3.11 uIU/mL (0.36-3.74); Total Protein 7.4 g/dL (6.4-8.2)
[2022-07-06 11:50] LABS: Albumin 63.8 % (55.8-66.1); Albumin g/dL 4.2 g/dL (3.6-5.2); Total Protein 6.6 g/dL (6.3-8.2)
[2022-07-10 14:43] LABS: PTH-Related Peptide 0.5 pmol/L (< or = 4.2)
== END 2022-07-05 10:37 | disposition home or self-care (01) ==
LOC: LBO 10:36
PROVIDERS: PCP Family Medicine; Visit Provider Family Medicine
DX: E78.5 Hyperlipidemia, unspecified (principal); M54.6 Pain in thoracic spine
CPT/HCPCS: 36415; 80053; 85027; 82397; 84165; 84443

== ENCOUNTER → 2022-09-17 13:11 | Outpatient (CLI) | payer MEDICARE, SELFPAY ==
--- NOTE | 2022-09-17 12:30 | DI.RAD_ITS ---
Exam(s) XR HIP RT COMPLETE AP PELVIS EXAM: XR HIP RT COMPLETE AP PELVIS CLINICAL HISTORY: HIP PAIN-M25.559.....THIGH PAIN. TECHNIQUE: 2D digital imaging was performed of the right hip. Three images were obtained. AP pelvis and lateral right hip views were obtained. COMPARISON: CR LUMBAR SPINE COMPLETE from 04/26/2016 FINDINGS: BONES: No acute fracture is present. No bony destructive lesion is seen. Portions of the sacrum are o bscured due to the overlying bowel. JOINTS: No dislocation present. The right hip is well maintained. SOFT TISSUE: Normal. IMPRESSION: Unremarkable radiographs of the right hip. DATA REPOSITORY: RADIATION DOSE DELIVERED:
--- NOTE | 2022-09-17 12:30 | DI.RAD_ITS ---
Exam(s) XR SACROILIAC JOINTS EXAM: XR SACROILIAC JOINTS CLINICAL HISTORY: SACROCOCCYGEAL DISORDER-M53.3, R SI PAIN. TECHNIQUE: 2D digital imaging was performed. Three images were obtained. COMPARISON: CR LUMBAR SPINE COMPLETE from 04/26/2016 CR XR LUMBAR SPINE COMPLETE from 06/02/2020 FINDINGS: Bones: No fracture is present. No bony destructive lesion is seen. Alignment is satisfactory. SI Joint:No fusion or erosions are seen. Mild degenerative changes are seen at the sacroiliac joints bilaterally. Soft Tissue: The examination is mildly limited due to overlying bowel. There is a large amount of s tool in the colon. IMPRESSION: 1. Mild degenerative changes of the SI joints. 2. Large amount of stool in the colon suggesting constipation. DATA REPOSITORY: RADIATION DOSE DELIVERED:
== END ==
PROVIDERS: PCP Family Medicine; Visit Provider Family Medicine
DX: M53.3 Sacrococcygeal disorders, not elsewhere classified (principal); M25.551 Pain in right hip
CPT/HCPCS: 72202; 73502

== ENCOUNTER → 2022-09-27 02:53 | Outpatient (CLI) | payer MEDICARE, SELFPAY ==
--- NOTE | 2022-09-27 08:00 | DI.MAMMO_ITS ---
Exam(s) MAMMO SCREENING EXAM: MAMMO SCREENING CLINICAL HISTORY: screening,z12.39 TECHNIQUE: Bilateral full field digital CC and MLO mammographic images were obtained with 3D tomosyn thesis and utilizing computer aided detection (CAD). COMPARISON: Available for comparison. FINDINGS: Masses/Architectural Distortion: None seen. Microcalcifications: No suspicious pleomorphic-type are seen. Skin Thickening/Nipple Retraction: None. IMPRESSION: 1. No significant interval change with no specific features of malignancy noted. 2. Unless there is more urgent need, screening mammography is recommended, as per [employer] guidelines. BI-RADS Category 1 - Negative Breast Density - Category B - Scattered areas of fibroglandular density Breast density category C or D implies that the patient has dense breast tissue. Dense breast tissue is very common and is not abnormal but dense breast tissue can make it harder to find cancer on a ma mmogram. Also, dense breast tissue may increase their breast cancer risk. This information about the result of the mammogram report was provided to the patient to raise their awareness. Use this report when you speak with the patient about their risks for breast cancer, which includes their family hist ory. At that time, you may recommend for more screening tests (Ultrasound or MRI) as they might be us eful based on their risk. A negative radiographic report should not delay biopsy if a dominant or clinically suspicious mass is present. Up to ten percent of cancers are not identified on mammography. A negative report may reinforce clinical impression. Adenosis and dense breasts may obscure an underlying neoplasm. False positive reports average 6 to 10%. Patient will receive a letter notifying them of these results.
== END ==
PROVIDERS: PCP Family Medicine; Visit Provider Family Medicine
DX: Z12.31 Encounter for screening mammogram for malignant neoplasm of breast (principal)
CPT/HCPCS: 77063; 77067

== ENCOUNTER 2023-05-05 19:09 | Emergency (ER) | payer MEDICARE, SELFPAY ==
--- NOTE | 2023-05-05 19:15 | RT.EKG_ITS ---
APPROVED REPORT Exam: Resting ECG Reason for Exam: chest pain Patient Location: E HR:98 bpm ECG Measurements Heart Rate 98 AXIS SC 151 P 75 QRSd 91 QRS 120 QT 344 T 78 QTc 438 Conclusion Sinus rhythm...normal P axis, V-rate 60- 99 Right ventricular hypertrophy...prominent R or R' w/ RAD or ENRIQUE
[2023-05-05 19:19] VITALS: BP 157/79; PULSE 95; RESP 22; TEMP 36.6; O2SAT 96
--- NOTE | 2023-05-05 19:30 | DI.CT_ITS ---
Exam(s) CT CHEST PE CTA EXAM: CT CHEST PE CTA CLINICAL HISTORY: back and chest pain, thoracic pain. TECHNIQUE: Imaging Protocol: Axial CT angiography was performed with multi-slice acquisition and mu lti-planar and/or 3D reconstructions. CONTRAST MATERIAL: Intravenous: Omnipaque 350 contrast volume:90 mL COMPARISON: CT RENAL COLIC WO CONTRAST from 08/15/2015 FINDINGS: The examination is limited due to patient motion artifact. Tracheobronchial tree: Patent where visualized. Pulmonary parenchyma: No consolidation or dominant measurable mass. No architectural distortion. Pulmonary Arteries: No evidence of filling defect to suggest pulmonary emboli. Mediastinum and Svetlana: No dominant adenopathy or fluid collection. The esophagus is unremarkable. Visualized thyroid gland: Unremarkable. Pleura: No effusion or pneumothorax. Heart: The heart is not dilated. No coronary artery calcifications are seen. No pericardial effusion. Aorta: Thoracic aorta non-dilated. No evidence of dissection. Atherosclerosis is present. Upper abdomen: There is a duodenal diverticulum again seen. Soft tissues: Unremarkable. Bones: Within normal limits for the patient's age. IMPRESSION: No evidence of pulmonary embolism, thoracic aortic dissection or aneurysm. RADIATION DOSE DELIVERED: 273.9mGy.cm Total DLP DATA REPOSITORY: All CT scans at this facility are submitted to the National Radiology Data Registry (NRDR) Dose Index Registry (DIR) with the [employer] (A[employer]). RADIATION OPTIMIZATION: All CT scans at this facility use at least one of these dose optimization te chniques: automated exposure control; mA and/or kV adjustment per patient size (includes targeted exa ms where dose is matched to clinical indication); or iterative reconstruction.
[2023-05-05 19:59] LABS: Abs Immature Grans 0.01 10^3/uL (0.0-0.06); Absolute Basophil Count 0.03 10^3/uL (0.0-0.2); Absolute Eosinophil Count 0.09 10^3/uL (0.0-0.7); Absolute Lymphocyte Count 1.05 10^3/uL (1.2-3.4); Absolute Monocyte Count 0.39 10^3/uL (0.1-0.8); Absolute Neutrophil Count 3.14 10^3/uL (1.2-6.7); Basophils % 0.6; Eosinophils % 1.9; HCT 40.6 % (36.0-46.0); HGB 13.9 g/dL (11.2-15.7); Immature Grans % 0.2; Lymphocytes % 22.3; MCH 31.6 pg (27.0-33.0); MCHC 34.2 % (32.0-36.0); MCV 92 fL (80-95); MPV 9.4 fL (8.0-11.0); Monocytes % 8.3; Neutrophils % 66.7; Platelet Count 277 10^3/uL (130-400); RDW 12.2 % (11.7-14.6); RDW-SD 41.9 fL; WBC 4.71 10^3/uL (4.4-10.8)
[2023-05-05 20:15] LABS: ALT 13 U/L (14-59); AST 15 U/L (15-37); Albumin 4.1 g/dL (3.4-5.0); Alkaline Phosphatase 72 U/L (46-116); Anion Gap 7.1 mmol/L (3-11); BUN 20 mg/dL (7-18); Bilirubin, Total 0.3 mg/dL (0.2-1.0); CO2 28.9 mmol/L (21.0-32.0); CREATININE 0.8 mg/dL (0.55-1.02); Calcium 9.4 mg/dL (8.5-10.1); Chloride 99 mmol/L (98-107); Estimated GFR 80.21 (mL/min/1.73m2); Glucose 139 mg/dL (74-106); Potassium 3.6 mmol/L (3.5-5.1); Sodium 135 mmol/L (136-145); Total Protein 7.6 g/dL (6.4-8.2)
[2023-05-05 20:18] LABS: Troponin I < 50 ng/L (<or=60)
[2023-05-05] MEDS: Omnipaque 350 MG/ML 100 ML BTL IJ (20:26)
[2023-05-05] MEDS: Normal Saline - Diluent 50 ML VIAL IJ (20:26)
[2023-05-05] MEDS: Normal Saline Flush 10 ML SYR IVP (20:27)
--- NOTE | 2023-05-05 21:03 | DI.VRAD_ITS ---
PROCEDURE INFORMATION: Exam: CTA Chest With Contrast Exam date and time: 05/05/2023 20:29 Age: 67 years old Clinical indication: Chest pressure and other: Back and chest pain, thoracic pain TECHNIQUE: Imaging protocol: Computed tomographic angiography of the chest with contrast. Exam focused on the arteries. 3D rendering (Not supervised by radiologist): MIP and/or 3D reconstructed images were created by the technologist. Contrast material: OMNIPAQUE 350; Contrast volume: 100 ml; Contrast route: INTRAVENOUS (IV); COMPARISON: No relevant prior studies available. FINDINGS: Pulmonary arteries: No pulmonary emboli. Aorta: No aortic aneurysm. No aortic dissection. Lungs: No consolidation to suggest pneumonia or infarct.Scattered microatelectasis. Motion artifact in the lungs. Pleural spaces: No pneumothorax. No pleural effusion. Heart: No cardiomegaly. No pericardial effusion. Lymph nodes: No enlarged lymph nodes. Bones/joints: The bones are demineralized. Exaggerated thoracic kyphosis. No acute fracture or subluxation. Soft tissues: No suspicious lesions. IMPRESSION: No pulmonary emboli are seen. Dictated and Authenticated by: Mercedes Hernández MD. Ordering:SHON Dobson MD
[2023-05-05 22:58] VITALS: BP 117/65; PULSE 96; RESP 16; O2SAT 98
--- NOTE | 2023-05-05 22:58 | W.ED.GENAD ---
Discharge Plan Disposition Patient Disposition: Home Discharge Details Clinical Impression: Back pain, Chest pain Primary Care Provider: Lynsey Moy ED Provider: Olya Salguero Home Meds and New Rx's Prescriptions: New metaxalone 800 mg tablet 800 mg PO TID PRNQty: 14 0RF Continued acetaminophen 500 mg capsule 500 mg PO Q6H PRN Patient Comments: DO not exceed 3000mg per day meloxicam 7.5 mg tablet 7.5 mg PO DAILY Qty: 90 3RF carboxymethylcellulose sodium [TheraTears] 1 EACH dropperette,gel 1 drp OU 4-6x/day Preparation H Maximum Strength 51 GM cream 1 applic RC PRN Patient Comments: generic brand meclizine 12.5 mg tablet 12.5 mg PO TID PRN (Reason: dizziness) Qty: 30 4RF levothyroxine 75 mcg tablet 75 mcg PO DAILY Qty: 90 4RF omeprazole 20 mg capsule,delayed release(DR/EC) 20 mg PO DAILY Qty: 90 3RF lidocaine 5 % adhesive patch,medicated 1 patch TP DAILY PRN (Reason: muscle spasm) Qty: 15 0RF Rx Instructions: leave on most painful area for up to 12 hrs No Action prednisone 10 mg tablet See Rx Instructions PO DAILY Qty: 11 0RF Rx Instructions: 1 tab daily for 5days then 0.5 tab daily for 6 days Discharge Instructions Instructions: Back Pain (ED) Additional Instructions: Take Tylenol as needed for pain, do not exceed 3 g a day Take Skelaxin as needed for musculoskeletal pain, limit heavy weight lifting Return earlier should you have changes in bowel or bladder, strength or sensation change, or should you have new or worsening complaints Referral has been placed to the spine center at [facility] Referrals: Lynsey Moy MD, [place] [Primary Care Provider] - Discharge Data Discharge Date/Time-TO BE ENTERED AT DEPARTURE: 05/05/23 22:58 Medical Decision Making 59-year-old female, anxious, alert and oriented Nonfocal neurological exam reproducible pain We will order CTA for further evaluation and diagnostic blood work including troponin, no evidence of a dissection or cardiac disease, low suspicion for coronary artery disease clinically in the presence of a unchanged EKG and troponin without acute abnormality Labs do not show evidence of acute abnormality She is nonfocal neurological exam Will place on Skelaxin for musculoskeletal pain and referred to spine center, says she is allergic to steroids so we will hold for now Reviewed CTA findings, no evidence of pulmonary embolism or abdominal or thoracic aortic aneurysm Will follow-up closely with primary care physician Return precautions reviewed and patient expressed understanding HPI General Date/Time Provider Initiated Documentation: 05/05/23 19:30. HPI Narrative: This 67-year-old female with history of back pain presents with report of back pain with new onset of radiation into chest since yesterday. States is worse when she moves. Denies any pleuritic chest pain. Denies any shortness of breath. Denies fever or chills. States she feels like the pain radiates around from her back. Denies known trauma. Has been taking Tylenol [id number] without relief in pain. Denies any calf pain or swelling. Denies history of coronary artery disease or hypertension. Related Data Home Medications Medication Instructions Recorded Confirmed carboxymethylcellulose sodium 1 % 1 drp OU 4-6x/day 04/28/13 05/06/23 eye gel in a dropperette (TheraTears) phenylephrine 0.25 %-pramoxine 1 1 applic RC PRN 02/11/17 05/06/23 %-glycerin-wh.petrolatum rectal cream (Preparation H Maximum Strength) lidocaine 5 % topical patch 1 patch topical DAILY PRN muscle 06/02/20 05/06/23 spasm #15 ea acetaminophen 500 mg capsule 500 mg PO Q6H PRN 03/01/22 05/06/23 meclizine 12.5 mg tablet 12.5 mg PO TID PRN dizziness #30 04/11/22 05/06/23 tabs levothyroxine 75 mcg tablet 75 mcg PO DAILY #90 tabs 11/07/22 05/06/23 omeprazole 20 mg capsule,delayed 20 mg PO DAILY #90 caps 02/05/23 05/06/23 release meloxicam 7.5 mg tablet 7.5 mg PO DAILY #90 tabs 04/04/23 05/06/23 metaxalone 800 mg tablet 800 mg PO TID PRN #14 tabs 05/05/23 05/06/23 prednisone 10 mg tablet See Rx Instructions PO DAILY #11 05/06/23 05/06/23 tabs Previous Rx's Medication Instructions Recorded lidocaine 5 % topical patch 1 patch topical DAILY PRN muscle 06/02/20 spasm #15 ea meclizine 12.5 mg tablet 12.5 mg PO TID PRN dizziness #30 04/11/22 tabs levothyroxine 75 mcg tablet 75 mcg PO DAILY #90 tabs 11/07/22 omeprazole 20 mg capsule,delayed 20 mg PO DAILY #90 caps 02/05/23 release meloxicam 7.5 mg tablet 7.5 mg PO DAILY #90 tabs 04/04/23 metaxalone 800 mg tablet 800 mg PO TID PRN #14 tabs 05/05/23 prednisone 10 mg tablet See Rx Instructions PO DAILY #11 05/06/23 tabs Allergies Allergy/AdvReac Type Severity Reaction Status Date / Time fentanyl AdvReac Severe SEVERE Verified 05/05/23 20:04 POST OP NAUSEA & VOMITING hydrocortisone AdvReac Severe BURNING Verified 05/05/23 20:04 [From Hydrocortone] midazolam HCl [From Versed] AdvReac Severe SEVERE Verified 05/05/23 20:04 POST OP NAUSEA & VOMITING Anesthetics - Amide Type - AdvReac N/V Verified 05/05/23 20:04 Select A [Anesthetics - Amide Type] Tetracyclines AdvReac Vomiting/Di Verified 05/05/23 20:04 zziness General Stated Complaint: Nk/Back Pain LUDMILA: 3 PFSH All Active Problems (Updated 05/05/23 @ 22:22 by RENZO Wade) Back pain (Acute) Chest pain (Acute) Grief reaction (Chronic) Skin lesion of face (Acute) Actinic keratosis (Acute) Sacro-iliac pain (Acute) Hip pain (Acute) Cervical pain (neck) (Acute) Vertigo (Acute) Sensorineural hearing loss (SNHL) of both ears (Acute) Left thyroid nodule (Acute) Acute thoracic back pain (Acute) Advance care planning (Acute) Acute UTI (Acute) Elevated blood pressure reading (Acute) Impairment of balance (Acute) Numbness and tingling of both legs below knees (Acute) Shingles (Acute) Left shoulder pain (Acute) Hypertension (Chronic) Dizziness (Acute) Anxiety (Chronic) Depressive disorder (Acute) Irritable colon (Acute) Tubular adenoma of colon (Chronic 11/15/15) Right hip pain (Chronic 02/27/18) Midline thoracic back pain (Chronic 01/02/16) Low back pain (Chronic 10/28/12) Hypothyroidism (Chronic 05/29/11) Hyperlipidemia (Chronic) Hearing loss (Chronic) Gastroesophageal reflux disease (Chronic 11/05/13) Cervicalgia (Chronic 01/16/18) Medical History Depressive disorder Fall (01/16/18) GERD (gastroesophageal reflux disease) History of recent stressful life event (08/09/15) Hypothyroidism Intermittent palpitations Irritable colon Microscopic hematuria (07/30/15) 1996 neg urology eval Micturition syncope (01/16/18) Sebaceous cyst of skin of right breast (07/07/15) infected Thyroid nodule Weight loss, abnormal Surgical History Biopsy of breast (~07/2010) Colonoscopy - MAC (~06/2011) Colonoscopy - MAC (07/24/16) H/O tubal ligation bilateral Ligation of fallopian tube S/P breast biopsy neg Family History Father , 65 Chronic obstructive lung disease Sister Personal history of malignant neoplasm breast Hypothyroid Sister Personal history of malignant neoplasm Brother Essential hypertension Hypothyroid Maternal Grandmother Personal history of malignant neoplasm colon and throat Paternal Grandmother Personal history of malignant neoplasm breast Son , 43 Cancer Daughter No problems noted. Mother No problems noted. Maternal Grandfather No problems noted. Paternal Grandfather No problems noted. Social History (Updated 12/04/22 @ 16:06 by Qi Calvert) Smoking/Tobacco Use Status: Never Second Hand Exposure: Yes Smoking risk assessment performed?: Yes Alcohol Intake: never Drug use: Never Substance use type: does not use Caregiver/Support person: No Household members: none Housing: house Communication Needs: Hard of Hearing Do you need help understanding health information?: Rarely Pets and animals: No Sexually active: No Do you think of yourself as: straight/heterosexual Current gender identity: female What is your relationship status?: How often do you talk on the phone with friends or family?: decline to answer How often do you get together with friends or relatives?: decline to answer How often do you attend zoroastrianism or yazidism services?: decline to answer Do you belong to any clubs or organized social groups?: decline to answer Panel score (0-1 are the most socially isolated patients): 0 What type of physical activity do you participate in: walking and other Details: MOW, SHOVEL SNOW Duration: 45-60 minutes/day Frequency: 5-6 times per week Milena/Taoism: None Special milena needs: No Seatbelt use: always Helmet use: No Drive intox or ride w/intox set key driver: No Do you feel safe at home: Yes Do you feel safe in your relationship?: Yes Exam Narrative Exam Narrative: no reproducible tenderness in thoracic or cervical spine region, tenderness on chest wall, no crepitus, lungs clear to auscultation, cardiac rate rhythm regular, distal pulses intact, no abdominal tenderness, specifically no abdominal bruit or pulsatile mass no clinical evidence of cauda equina syndrome, ambulatory with steady gait, distal pulses intact, negative straight leg raise, no rashes or lesions, no CVA tenderness Course Vital Signs Vital signs: Vital Signs Temperature 36.6 C 05/05/23 19:19 Pulse 95 H 05/05/23 19:19 Respiratory Rate 22 05/05/23 19:19 Blood Pressure 157/79 H 05/05/23 19:19 Pulse Oximetry 96 05/05/23 19:19 Temperature 36.6 C 05/05/23 19:19 Temperature Source Oral 05/05/23 19:19 Pulse 95 H 05/05/23 19:19 Respiratory Rate 22 05/05/23 19:19 Respiratory Effort Normal 05/05/23 19:57 Blood Pressure 157/79 H 05/05/23 19:19 Pulse Oximetry 96 05/05/23 19:19 Oxygen Delivery Method Room Air 05/05/23 19:19 Oxygen Flow Rate 0 05/05/23 19:19 Pain Level 5 05/05/23 19:19 Lab/Test Results Lab/Test Results: Laboratory Tests Range/Units 05/05/23 05/05/23 05/05/23 19:53 19:53 19:53 WBC (4.4-10.8) 10^3/uL 4.71 RBC (3.93-5.22) 10^6/uL 4.40 Hgb (11.2-15.7) g/dL 13.9 Hct (36.0-46.0) % 40.6 MCV (80-95) fL 92 MCH (27.0-33.0) pg 31.6 MCHC (32.0-36.0) % 34.2 RDW (11.7-14.6) % 12.2 Plt Count (130-400) 10^3/uL 277 MPV (8.0-11.0) fL 9.4 Immature Gran % 0.2 Neutrophils % 66.7 Lymphocytes % 22.3 Monocytes % 8.3 Eosinophils % 1.9 Basophils % 0.6 Nucleated RBC % (0.0-0.3) % 0.0 Absolute Neutrophils (1.2-6.7) 10^3/uL 3.14 Absolute Lymphocytes (1.2-3.4) 10^3/uL 1.05 L Absolute Monocytes (0.1-0.8) 10^3/uL 0.39 Absolute Eosinophils (0.0-0.7) 10^3/uL 0.09 Absolute Basophils (0.0-0.2) 10^3/uL 0.03 Sodium (136-145) mmol/L 135 L Potassium (3.5-5.1) mmol/L 3.6 Chloride (98-107) mmol/L 99 Carbon Dioxide (21.0-32.0) mmol/L 28.9 Anion Gap (3-11) mmol/L 7.1 BUN (7-18) mg/dL 20 H Creatinine (0.55-1.02) mg/dL 0.8 Est GFR (CKD-EPI 2020) (mL/min/1.73m2) 80.21 Glucose (74-106) mg/dL 139 H Calcium (8.5-10.1) mg/dL 9.4 Total Bilirubin (0.2-1.0) mg/dL 0.3 AST (15-37) U/L 15 ALT (14-59) U/L 13 L Alkaline Phosphatase (46-116) U/L 72 Troponin I (<or=60) ng/L < 50 Total Protein (6.4-8.2) g/dL 7.6 Albumin (3.4-5.0) g/dL 4.1
--- NOTE | 2023-05-06 02:56 | NUR.NOTE ---
Referral made to [facility] for chronic back pain in 1-2 weeks. Placed the referral in the health care sanitary technician's box for f/u assistance.Nursing Note:
== END 2023-05-05 22:58 | disposition home or self-care (01) ==
PROVIDERS: Emergency Provider Physician Assistant; PCP Family Medicine
DX: M54.9 Dorsalgia, unspecified (principal); R07.9 Chest pain, unspecified
CPT/HCPCS: 71275; 80053; 93005; 99285; 84484; 85025; 93010; 99284; J3490

== ENCOUNTER → 2023-07-12 00:34 | Outpatient (CLI) | payer MEDICARE, SELFPAY ==
--- NOTE | 2023-07-12 08:00 | DI.MRI_ITS ---
Exam(s) MR LUMBAR SPINE WO EXAM: MR LUMBAR SPINE WO CLINICAL HISTORY: persistent right LOW BACK PAIN despite chiro, PT, meds,IMBALANCE,SI PAIN,. TECHNIQUE: Multiplanar multisequence MRI of the Lumbar spine was performed. COMPARISON: CR XR LUMBAR SPINE COMPLETE from 06/26/2022 FINDINGS: Bones: The last intervertebral disc space is designated the L5/S1 level for the numbering purpose of this examination. The vertebral body heights are well maintained. Alignment is satisfactory. The ma rrow signal characteristics are unremarkable. Cord: The conus tip ends at the T12 level. It is of normal size and signal intensity. T12-L1: No disc herniations or bulges are present. No central spinal canal or neural foraminal stenos is. L1-2: No disc herniations or bulges are present. No central spinal canal or neural foraminal stenosis . L2-3: No disc herniations or bulges are present. No central spinal canal or neural foraminal stenosis . L3-4: No disc herniations or bulges are present. No central spinal canal or neural foraminal stenosis . L4-5: Mild loss disc height. Mild concentric disc bulging. No central spinal canal or neural forami nal stenosis. L5-S1: No disc herniations or bulges are present. No central spinal canal or neural foraminal stenosi s. The visualized SI joints and sacrum are well maintained. Soft tissues: The paraspinal soft tissues are unremarkable. IMPRESSION: Mild disc bulging at L4-5. No evidence disc herniation. No evidence of significant spinal stenosis or neuroforaminal narrowing. DATA REPOSITORY:
== END ==
PROVIDERS: PCP Family Medicine; Visit Provider Family Medicine
DX: M51.26 Other intervertebral disc displacement, lumbar region (principal)
CPT/HCPCS: 72148

== ENCOUNTER 2023-07-19 02:27 | Outpatient (CLI) | payer MEDICARE, SELFPAY ==
[2023-07-19 11:12] LABS: TSH (W/Ref FT4) 2.82 uIU/mL (0.36-3.74)
== END 2023-07-19 02:28 | disposition home or self-care (01) ==
LOC: LOS 02:27
PROVIDERS: PCP Family Medicine; Visit Provider Family Medicine
DX: E03.9 Hypothyroidism, unspecified (principal)
CPT/HCPCS: 36415; 84443

== ENCOUNTER → 2023-10-08 18:54 | Outpatient (CLI) | payer MEDICARE, SELFPAY ==
--- NOTE | 2023-10-08 12:15 | DI.RAD_ITS ---
Exam(s) XR FOOT LT COMPLETE EXAM: XR FOOT LT COMPLETE CLINICAL HISTORY: PAIN IN LT FOOT-M79.672. TECHNIQUE: 2D digital imaging was performed. COMPARISON: CR XR FOOT LT COMPLETE from 09/22/2020 FINDINGS: 3 views No evidence of acute fracture or diastasis of the Lisfranc joint. Great toe metatarsophalangeal join t appears unremarkable. No pes planus evident. There is a tiny inferior calcaneal spur. There is n o calcification in the adjacent plantar fascia. There is no enthesophyte on the posterior aspect of the calcaneus and no obvious abnormal thickening of the Achilles tendon. No osseous lesions nor erosions. No radiopaque foreign body. IMPRESSION: Tiny inferior calcaneal spur. No calcification evident in the adjacent plantar fascia. DATA REPOSITORY: RADIATION DOSE DELIVERED:
== END ==
PROVIDERS: PCP Family Medicine; Visit Provider Nurse Practitioner Family
DX: M79.672 Pain in left foot (principal)
CPT/HCPCS: 73630

== ENCOUNTER 2023-10-30 11:20 | Outpatient (CLI) | payer MEDICARE, SELFPAY ==
--- NOTE | 2023-10-30 11:15 | RT.EKG_ITS ---
APPROVED REPORT Exam: Resting ECG Reason for Exam: syncope Patient Location: O HR:85 bpm ECG Measurements Heart Rate 85 AXIS IA 150 P 73 QRSd 85 QRS 96 QT 356 T 74 QTc 424 Conclusion Sinus rhythm...normal P axis, V-rate 50- 99 Consider right ventricular hypertrophy...large R or R' V1/V2
== END 2023-10-30 11:21 | disposition home or self-care (01) ==
LOC: DI.CM 11:22
PROVIDERS: PCP Family Medicine; Visit Provider Nurse Practitioner Family
DX: R55 Syncope and collapse (principal)
CPT/HCPCS: 93010

== ENCOUNTER 2023-10-30 11:34 | Outpatient (CLI) | payer MEDICARE, SELFPAY ==
[2023-10-30 12:24] LABS: Abs Immature Grans 0.01 10^3/uL (0.0-0.06); Absolute Basophil Count 0.03 10^3/uL (0.0-0.2); Absolute Eosinophil Count 0.02 10^3/uL (0.0-0.7); Absolute Lymphocyte Count 0.86 10^3/uL (1.2-3.4); Absolute Monocyte Count 0.37 10^3/uL (0.1-0.8); Absolute Neutrophil Count 4.02 10^3/uL (1.2-6.7); Basophils % 0.6; Eosinophils % 0.4; HCT 42.3 % (36.0-46.0); HGB 13.9 g/dL (11.2-15.7); Immature Grans % 0.2; Lymphocytes % 16.2; MCH 31.3 pg (27.0-33.0); MCHC 32.9 % (32.0-36.0); MCV 95 fL (80-95); MPV 9.3 fL (8.0-11.0); Neutrophils % 75.6; Platelet Count 287 10^3/uL (130-400); RBC 4.44 10^6/uL (3.93-5.22); RDW-SD 45.9 fL; WBC 5.31 10^3/uL (4.4-10.8)
[2023-10-30 12:44] LABS: ALT 20 U/L (14-59); AST 26 U/L (15-37); Albumin 4.2 g/dL (3.4-5.0); Alkaline Phosphatase 66 U/L (46-116); Anion Gap 8.3 mmol/L (3-11); BUN 22 mg/dL (7-18); Bilirubin, Total 0.3 mg/dL (0.2-1.0); CO2 30.7 mmol/L (21.0-32.0); CREATININE 0.8 mg/dL (0.55-1.02); Calcium 9.6 mg/dL (8.5-10.1); Chloride 99 mmol/L (98-107); Estimated GFR 80.21 (mL/min/1.73m2); Glucose 107 mg/dL (74-106); Potassium 4.6 mmol/L (3.5-5.1); Sodium 138 mmol/L (136-145); Total Protein 7.9 g/dL (6.4-8.2)
[2023-11-01 09:04] LABS: TSH (W/Ref FT4) 5.75 uIU/mL (0.36-3.74)
[2023-11-01 09:24] LABS: FREE T4 0.94 ng/dL (0.76-1.46)
== END 2023-10-30 11:35 | disposition home or self-care (01) ==
LOC: LOS 11:34
PROVIDERS: PCP Family Medicine; Referring Provider Nurse Practitioner Family; Visit Provider Nurse Practitioner Family
DX: R55 Syncope and collapse (principal)
CPT/HCPCS: 36415; 80053; 84439; 84443; 85025

== ENCOUNTER 2023-11-15 09:58 | Outpatient (CLI) | payer MEDICARE, SELFPAY | END 2023-11-15 09:59 | disposition home or self-care (01) | PROVIDERS: PCP Family Medicine; Visit Provider Nurse Practitioner Family | DX: R55 Syncope and collapse (principal) | CPT/HCPCS: 93246 ==

== ENCOUNTER 2023-12-09 06:46 | Outpatient (CLI) | payer MEDICARE, SELFPAY ==
--- NOTE | 2023-12-09 09:24 | W.CARDEVENT ---
Date of service: 12/09/23 Time of Service: 09:26 Cardiac Event Recorder Referring Provider:: Je Indications:: Syncope and collapse Cardiac Event Note: This was a 14-day event monitor to evaluate for syncope and collapse. 1. The underlying rhythm is sinus, rate range 61 to 150 bpm. Average sinus rate 87 bpm. 2. Numerous supraventricular ectopics with 8 runs of supraventricular tachycardia, longest 7 beats, fastest 181 bpm. 3. No pauses or ventricular ectopy noted 4. No patient triggered events Impression: Paroxysmal supraventricular tachycardia
== END 2023-12-09 06:47 | disposition home or self-care (01) ==
LOC: CARDOPNVT 06:46
PROVIDERS: PCP Family Medicine; Visit Provider Internal Medicine Interventional Cardiology
DX: R55 Syncope and collapse (principal); I49.3 Ventricular premature depolarization
CPT/HCPCS: 00123; 93248

== ENCOUNTER → 2024-03-23 02:36 | Outpatient (CLI) | payer MEDICARE, SELFPAY ==
--- NOTE | 2024-03-23 08:15 | DI.MAMMO_ITS ---
Exam(s) MAMMO SCREENING EXAM: MAMMO SCREENING CLINICAL HISTORY: screening,z12,39 TECHNIQUE: Bilateral full field digital CC and MLO mammographic images were obtained with 3D tomosyn thesis and utilizing computer aided detection (CAD). COMPARISON: Available for comparison. FINDINGS: Masses/Architectural Distortion: None seen. Microcalcifications: No suspicious pleomorphic-type are seen. Skin Thickening/Nipple Retraction: None. IMPRESSION: 1. No significant interval change with no specific features of malignancy noted. 2. Unless there is more urgent need, screening mammography is recommended, as per [place] [employer] guidelines. BI-RADS Category 1 - Negative Breast Density - Category B - Scattered areas of fibroglandular density Breast density category C or D implies that the patient has dense breast tissue. Dense breast tissue is very common and is not abnormal but dense breast tissue can make it harder to find cancer on a ma mmogram. Also, dense breast tissue may increase their breast cancer risk. This information about the result of the mammogram report was provided to the patient to raise their awareness. Use this report when you speak with the patient about their risks for breast cancer, which includes their family hist ory. At that time, you may recommend for more screening tests (Ultrasound or MRI) as they might be us eful based on their risk. A negative radiographic report should not delay biopsy if a dominant or clinically suspicious mass is present. Up to ten percent of cancers are not identified on mammography. A negative report may reinforce clinical impression. Adenosis and dense breasts may obscure an underlying neoplasm. False positive reports average 6 to 10%. Patient will receive a letter notifying them of these results.
--- NOTE | 2024-03-23 08:15 | DI.DEXA_ITS ---
Exam(s) XR DEXA BONE DENSITY W/WO KOLE EXAM: XR DEXA BONE DENSITY W/WO KOLE CLINICAL HISTORY: post menopausal woman, screening for osteoporosis, z78.0 TECHNIQUE: Routine DEXA evaluation of the lumbar spine, hip, or forearm. COMPARISON: No exams were available for comparison FINDINGS: Performed on a Hologic unit. Lateral image: No compression fracture evident. Lumbar Spine total T-score: -5.8 Hip total T-score:-3.2 Independent reading at the level of the femoral neck yields T-score of -4.0 Forearm total T-score: -4.4 IMPRESSION: Bone mineral density measures in the OSTEOPOROSIS range. Fracture risk is HIGH. Note: Any spine fracture indicates 5x risk for subsequent spine fracture and 2x risk for subsequent h ip fracture. World Health Organization criteria for BMD interpretation classify patients: Normal...... T- Score at or above -1.0 Osteopenic... T- Score between -1.0 and -2.5 Osteoporosis... T-Score at or below -2.5
== END ==
PROVIDERS: PCP Family Medicine; Visit Provider Family Medicine
DX: Z78.0 Asymptomatic menopausal state (principal); Z12.31 Encounter for screening mammogram for malignant neoplasm of breast; Z13.820 Encounter for screening for osteoporosis
CPT/HCPCS: 77063; 77067; 77080

== ENCOUNTER 2024-11-10 12:08 | Outpatient (REF) | payer MEDICARE, SELFPAY | END 2024-11-10 12:09 | disposition home or self-care (01) | LOC: LBN 12:08 | PROVIDERS: PCP Family Medicine; Visit Provider Obstetrics & Gynecology | DX: N89.8 Other specified noninflammatory disorders of vagina (principal) | CPT/HCPCS: 87480; 87510; 87660 ==

== ENCOUNTER 2024-12-22 02:38 | Outpatient (CLI) | payer MEDICARE, SELFPAY ==
[2024-12-22 12:54] LABS: Abs Immature Grans 0.02 10^3/uL (0.0-0.06); Absolute Basophil Count 0.04 10^3/uL (0.0-0.2); Absolute Eosinophil Count 0.06 10^3/uL (0.0-0.7); Absolute Lymphocyte Count 0.91 10^3/uL (1.2-3.4); Absolute Monocyte Count 0.38 10^3/uL (0.1-0.8); Absolute Neutrophil Count 2.71 10^3/uL (1.2-6.7); Eosinophils % 1.5 %; HCT 42.5 % (36.0-46.0); HGB 14.2 g/dL (11.2-15.7); Immature Grans % 0.5 %; Lymphocytes % 22.1 %; MCH 31.7 pg (27.0-33.0); MCHC 33.4 % (32.0-36.0); MCV 95 fL (80-95); MPV 9.7 fL (8.0-11.0); Monocytes % 9.2 %; Neutrophils % 65.7 %; Platelet Count 298 10^3/uL (130-400); RBC 4.48 10^6/uL (3.93-5.22); RDW 12.9 % (11.7-14.6); RDW-SD 45.4 fL; WBC 4.12 10^3/uL (4.4-10.8)
[2024-12-22 13:21] LABS: Hemoglobin A1C 5.8 % (<5.7)
[2024-12-22 13:22] LABS: ALT 16 U/L (14-59); AST 18 U/L (15-37); Albumin 4.2 g/dL (3.4-5.0); Alkaline Phosphatase 72 U/L (46-116); Anion Gap 5.5 mmol/L (3-11); BUN 17 mg/dL (7-18); Bilirubin, Total 0.39 mg/dL (0.2-1.0); CO2 31.5 mmol/L (21.0-32.0); CREATININE 0.9 mg/dL (0.55-1.02); Calcium 9.8 mg/dL (8.5-10.1); Calculated LDL 165 mg/dL (<100); Chloride 101 mmol/L (98-107); Cholesterol 261 mg/dL (<200); Estimated GFR 68.77 (mL/min/1.73m2); Glucose 101 mg/dL (74-106); HDL Cholesterol 76 mg/dL (40-60); Potassium 4.9 mmol/L (3.5-5.1); Sodium 138 mmol/L (136-145); TSH (W/Ref FT4) 4.86 uIU/mL (0.36-3.74); Total Protein 7.8 g/dL (6.4-8.2); Triglyceride 104 mg/dL (<150)
== END 2024-12-22 02:39 | disposition home or self-care (01) ==
LOC: LOS 02:38
PROVIDERS: PCP Family Medicine; Visit Provider Nurse Practitioner Family
DX: R63.5 Abnormal weight gain (principal); R73.01 Impaired fasting glucose; E78.5 Hyperlipidemia, unspecified
CPT/HCPCS: 36415; 80053; 80061; 83036; 84439; 84443; 85025

== ENCOUNTER 2025-02-09 03:08 | Outpatient (CLI) | payer MEDICARE, SELFPAY ==
[2025-02-09 12:38] LABS: TSH (W/Ref FT4) 2.28 uIU/mL (0.36-3.74)
== END 2025-02-09 03:09 | disposition home or self-care (01) ==
LOC: LOS 03:08
PROVIDERS: PCP Family Medicine; Visit Provider Nurse Practitioner Family
DX: E03.9 Hypothyroidism, unspecified (principal)
CPT/HCPCS: 36415; 84443

== ENCOUNTER 2025-03-25 01:13 | Outpatient (CLI) | payer MEDICARE, SELFPAY ==
--- NOTE | 2025-03-25 07:15 | DI.MAMMO_ITS ---
Exam(s) MAMMO SCREENING EXAM: MAMMO SCREENING CLINICAL HISTORY: screening,Z12.39 TECHNIQUE: Bilateral full field digital CC and MLO mammographic images were obtained with 3D tomosyn thesis and utilizing computer aided detection (CAD). COMPARISON: Available for comparison. FINDINGS: Masses/Architectural Distortion: No suspicious masses or areas of architectural distortion are presen t. Microcalcifications: No suspicious pleomorphic-type are seen. Skin Thickening/Nipple Retraction: None. IMPRESSION: 1. No significant interval change with no specific features of malignancy noted. 2. Unless there is more urgent need, screening mammography is recommended, as per [employer] guidelines. BI-RADS Category 1 - Negative Breast Density - Category B - Scattered areas of fibroglandular density Breast density category C or D implies that the patient has dense breast tissue. Dense breast tissue is very common and is not abnormal but dense breast tissue can make it harder to find cancer on a ma mmogram. Also, dense breast tissue may increase their breast cancer risk. This information about the result of the mammogram report was provided to the patient to raise their awareness. Use this report when you speak with the patient about their risks for breast cancer, which includes their family hist ory. At that time, you may recommend for more screening tests (Ultrasound or MRI) as they might be us eful based on their risk. A negative radiographic report should not delay biopsy if a dominant or clinically suspicious mass is present. Up to ten percent of cancers are not identified on mammography. A negative report may reinforce clinical impression. Adenosis and dense breasts may obscure an underlying neoplasm. False positive reports average 6 to 10%. Patient will receive a letter notifying them of these results.
== END 2025-03-25 01:33 ==
LOC: DI 01:13
PROVIDERS: PCP Family Medicine; Visit Provider Family Medicine
DX: Z12.31 Encounter for screening mammogram for malignant neoplasm of breast (principal); R92.323 Mammographic fibroglandular density, bilateral breasts
CPT/HCPCS: 77063; 77067

== ENCOUNTER 2025-09-16 09:22 | Outpatient (CLI) | payer MEDICARE, SELFPAY ==
[2025-09-16 10:26] LABS: HCT 41.7 % (36.0-46.0); HGB 14.3 g/dL (11.2-15.7); MCH 32.1 pg (27.0-33.0); MCHC 34.3 % (32.0-36.0); MCV 94 fL (80-95); MPV 9.3 fL (8.0-11.0); Platelet Count 309 10^3/uL (130-400); RBC 4.46 10^6/uL (3.93-5.22); RDW 12.9 % (11.7-14.6); RDW-SD 44.2 fL; WBC 3.64 10^3/uL (4.4-10.8)
[2025-09-16 11:01] LABS: Iron 104 ug/dL (50-170)
[2025-09-16 11:30] LABS: ALT 17 U/L (14-59); AST 22 U/L (15-37); Albumin 4.2 g/dL (3.4-5.0); Alkaline Phosphatase 85 U/L (46-116); Anion Gap 7.9 mmol/L (3-11); BUN 18 mg/dL (7-18); Bilirubin, Total 0.4 mg/dL (0.2-1.0); CO2 30.1 mmol/L (21.0-32.0); Calcium 9.0 mg/dL (8.5-10.1); Chloride 95 mmol/L (98-107); Estimated GFR 79.22 (mL/min/1.73m2); Glucose 78 mg/dL (74-106); Potassium 3.9 mmol/L (3.5-5.1); Sodium 133 mmol/L (136-145); TSH (W/Ref FT4) 3.51 uIU/mL (0.36-3.74); Total Protein 8.0 g/dL (6.4-8.2); Vitamin B12 569 pg/mL (193-986)
== END 2025-09-16 09:23 | disposition home or self-care (01) ==
PROVIDERS: PCP Family Medicine; Visit Provider Family Medicine
DX: K21.9 Gastro-esophageal reflux disease without esophagitis (principal); D64.9 Anemia, unspecified; R00.0 Tachycardia, unspecified; I10 Essential (primary) hypertension
CPT/HCPCS: 36415; 80053; 85027; 82607; 83540; 84443

== ENCOUNTER 2025-09-28 01:04 | Outpatient (CLI) | payer MEDICARE, SELFPAY ==
--- NOTE | 2025-09-28 06:45 | DI.US_ITS ---
APPROVED REPORT EXAM: Comprehensive 2D, Doppler, and color-flow Echocardiogram Patient Location: Out-Patient [facility] Instructor: Marlyn Torres RDCS (AE) Indications: Tachycardia Other Information Study Quality: Fair. Technically limited study due to body habitus, parasternal imaging TD, multiple positions attempted.. Conclusion Normal left ventricular wall thickness and chamber size. Ejection fraction is 60%. Wall motion is normal Normal right ventricular size and function Both atria are normal in size No significant valvular disease is noted Wall motion Left Ventricle Technically limited parasternal imaging. The overall left ventricular systolic function appears normal. Regional wall motion is grossly normal. There is no ventricular septal defect visualized. LVEF is 60%. Right Ventricle The right ventricle is normal size. The right ventricular systolic function is normal. Atria The left atrium size is normal. The right atrium size is normal. The interatrial septum is intact with no evidence for an atrial septal defect. Aortic Valve The aortic valve is not well visualized. There is no aortic valvular stenosis. Trace aortic regurgitation. Mitral Valve The mitral valve is normal in structure. No evidence of mitral valve stenosis. Trace mitral regurgitation. Tricuspid Valve The tricuspid valve is normal in structure. There is no tricuspid valve stenosis. Trace tricuspid regurgitation. Pulmonic Valve Pulmonic valve is not well visualized. Great Vessels Aortic root is not well visualized. Ascending aorta is not well visualized. Aortic arch is normal in caliber. IVC is normal in size and collapses >50% with inspiration. Pericardium There is no pericardial effusion. M-Mode TAPSE 1.95 cm (M/F) >1.7 Auto EF LV EDV A4C 65.6 mL LV EDV A2C 96.9 mL LV EDV BP 77.3 mL LV ESV A4C 26.4 mL LV ESV A2C 38.4 mL LV ESV BP 31.5 mL LVEF(%) A4C 59.8 % LVEF(%) A2C 60.4 % LVEF(%) BP 59.3 % LV SV A4C 39.2 ml LV SV A2C 58.5 ml LV SV BP 45.8 ml LV CO A4C 2.9 L/min LV CO A2C 4.3 L/min LV CO BP 3.6 L/min HR A4C 73.17 BPM HR A2C 73.17 BPM LV EDV Index (BP) LA Volume LA Length A4C 4.8 cm LA Length A2C 4.6 cm LA Area A4C s 13.25 cm2 LA Area A2C s 14.87 cm2 LA Vol A4C A-L 31.22 mL LA Vol A2C A-L 40.40 mL LA Vol Biplane A-L 36.0 mL LA Vol/BSA A4C A-L LA Vol/BSA A2C A-L LA Vol/BSA BP A-L 40.9 mL/m2 LA Vol A4C MOD 29.1 mL LA Vol A2C MOD 38.1 mL LA Vol BP MOD 33.8 mL RA Volume RA Area A4C 9.7 cm2 RA ESV A4C (A-L) 20.8mL RA Vol/BSA A4C A-L RA Length A4C 3.8 cm RA ESV A4C (MOD) 20.2mL LV Diastology MV E' medial 0.084 (>0.07 m/s) MV E Vmax 0.76 (0.4-1.3 m/s) MV E/E' MED 8.99 (<14) MV A Vmax 0.85 (0.4-1.3 m/s) MV E' lateral 0.095 (>0.1 m/s) E/A Ratio 0.9 MV E/E' LAT 7.98 (<14) MV E' Average 0.089 m/s MV E/E'(average) 8.45 Aortic Valve AoV Vmax 1.47 m/s LVOT Vmax 1.41 m/s AoV Peak Grad 8.6 mmHg LVOT Peak Grad 8.0 mmHg AoV VTI 0.301 m LVOT VTI 0.249 m AoV Mean Rao. 0.97 m/s LVOT Mean Grad 4.0 mmHg AoV Mean Grad 4.4 mmHg AV Regurg Peak Gr. 8.61 mmHg Velocity Ratio 0.96 Mitral Valve MV DT 286 (160-240 msec) MV Vmax TIPS 0.81 m/s MV Mean Grad 1.4 (<2mmHg) MV VTI 0.254 m Tricuspid Valve RA Pressure 3.00 mmHg TV S' 0.12 m/s
== END 2025-09-28 01:24 ==
LOC: DI 01:04
PROVIDERS: PCP Family Medicine; Visit Provider Family Medicine
DX: R00.0 Tachycardia, unspecified (principal)
CPT/HCPCS: 93306

== ENCOUNTER 2025-10-14 10:07 | Outpatient (CLI) | payer MEDICARE, SELFPAY | END 2025-10-14 10:08 | disposition home or self-care (01) | PROVIDERS: PCP Family Medicine; Visit Provider Family Medicine | DX: R00.0 Tachycardia, unspecified (principal) | CPT/HCPCS: 93246 ==

== ENCOUNTER 2025-11-05 07:38 | Outpatient (CLI) | payer MEDICARE, SELFPAY ==
--- NOTE | 2025-11-05 08:25 | W.CARDEVENT ---
Date of service: 11/05/25 Time of Service: 08:25 Cardiac Event Recorder Referring Provider:: Lynsey Moy Indications:: Tachycardia Cardiac Event Note: This is a cardiac event monitor. Patient was monitored for 13 days and 5 hours Rhythm throughout was sinus with an average heart rate of 85. Minimum was 62, maximum 141. There were very rare isolated ventricular ectopic beats. There were rare atrial premature beats. There was 1 atrial run, lasting 6 beats in duration There was no atrial fibrillation, no high-grade AV block, no pauses greater than 3 seconds Isolated symptom correlated to sinus tachycardia rate 125
== END 2025-11-05 07:39 | disposition home or self-care (01) ==
LOC: CARDOPNVT 07:38
PROVIDERS: PCP Family Medicine; Visit Provider Internal Medicine Cardiovascular Disease
DX: R00.0 Tachycardia, unspecified (principal)
CPT/HCPCS: 93248